=== PATIENT | female | born 1945 | race Caucasian/White ===

== ENCOUNTER 2017-10-22 11:24 | Inpatient (IN) | payer MEDICARE, BC ==
[2017-10-22] MEDS: IPRATROPIUM (NEB) 0.5 MG/2.5 ML AMP NEB ×2 (13:02→15:26)
[2017-10-22] MEDS: ALBUTEROL 0.083% (NEB) 2.5 MG/3 ML AMP NEB ×2 (13:02→15:26)
[2017-10-22 13:05] LABS: ADD MAN DIFF? NO
[2017-10-22 13:08] LABS: BASOPHILS % 0.4 % (0.0-2.0); EOSINOPHILS # 0.1 10^3/ul (0.0-0.5); EOSINOPHILS % 0.4 % (0.0-7.0); HEMATOCRIT 37.5 % (37.0-47.0); HEMOGLOBIN 12.3 g/dl (12.0-16.0); LYMPHOCYTES # 1.1 10^3/ul (0.8-2.9); LYMPHOCYTES % 9.9 % (15.0-51.0); MEAN CORPUSCULAR HEMOGLOBIN 33.9 pg (29.0-33.0); MEAN CORPUSCULAR HGB CONC 32.8 g/dl (32.0-37.0); MEAN CORPUSCULAR VOLUME 103.3 fl (82.0-101.0); MEAN PLATELET VOLUME 10.2 fl (7.4-10.4); MONOCYTE # 1.1 10^3/ul (0.3-0.9); MONOCYTES % 9.3 % (0.0-11.0); NEUTROPHIL # 9.1 10^3/ul (1.6-7.5); NEUTROPHILS % 79.7 % (39.0-77.0); PLATELET COUNT 241 10^3/UL (140-415); RED BLOOD COUNT 3.63 10^6/ul (4.20-5.40); RED CELL DISTRIBUTION WIDTH 16.2 % (11.5-14.5)
[2017-10-22 13:08] LABS: WHITE BLOOD COUNT 11.4 10^3/ul (4.8-10.8)
[2017-10-22 13:38] LABS: ANION GAP 14 (8-16); BLOOD UREA NITROGEN 18 mg/dl (7-20); CALCIUM 8.2 mg/dl (8.4-10.2); CARBON DIOXIDE 25 mmol/L (21-31); CHLORIDE 104 mmol/L (97-110); CREATININE 0.72 mg/dl (0.44-1.00); GLUCOSE 104 mg/dl (70-220); POTASSIUM 3.8 mmol/L (3.5-5.1); SODIUM 139 mmol/L (135-144)
[2017-10-22 13:52] LABS: TROPONIN-I < 0.012 ng/ml (0.00-0.12)
[2017-10-22] MEDS ORDERED: ONDANSETRON 4 MG INJ IV (17:00)
[2017-10-22] MEDS ORDERED: BISACODYL 10 MG SUPP PR (17:00)
[2017-10-22] MEDS ORDERED: DIPHENHYDRAMINE 50 MG INJ IV (17:00)
[2017-10-22] MEDS ORDERED: NACL 0.9% 3 ML SYG IV (17:00)
[2017-10-22] MEDS: METHYLPREDNISOLONE 125 MG INJ IV ×2 (17:44→21:34)
[2017-10-22] MEDS: morphine 2 MG INJ IV (17:44)
[2017-10-22 18:50] LABS: CREATINE KINASE 37 IU/L (23-200)
[2017-10-22 19:02] LABS: CK-MB 0.38 ng/ml (0.0-2.4); TROPONIN-I 0.014 ng/ml (0.00-0.12)
[2017-10-22] MEDS: ALBUTEROL/IPRATROPIUM (NEB) 3 ML AMP HHN (19:57)
[2017-10-22] MEDS: morphine 4 MG/ML VIAL IV (20:12)
[2017-10-22 21:41] LABS: INR 3.06; PROTIME 32.5 Sec (11.9-14.9); PT RATIO 2.5
[2017-10-23 01:43] LABS: CREATINE KINASE 32 IU/L (23-200)
[2017-10-23 01:54] LABS: CK INDEX 1.3; CK-MB 0.42 ng/ml (0.0-2.4)
[2017-10-23 02:02] LABS: TROPONIN-I < 0.012 ng/ml (0.00-0.12)
[2017-10-23] MEDS: ALBUTEROL/IPRATROPIUM (NEB) 3 ML AMP HHN ×4 (02:13→20:39)
[2017-10-23] MEDS: morphine 2 MG INJ IV ×2 (02:39→09:50)
[2017-10-23] MEDS ORDERED: VITAMIN A & D 5 GM OINT PACKET TOP (03:49)
[2017-10-23] MEDS: PANTOPRAZOLE 40 MG INJ IV (06:31)
[2017-10-23] MEDS: LEVOTHYROXINE 75 MCG TAB PO (07:00)
[2017-10-23] MEDS ORDERED: [UNRECOGNIZED DRUG - REMARK] XX (07:30)
[2017-10-23 08:27] LABS: ADD MAN DIFF? NO
[2017-10-23 08:32] LABS: WHITE BLOOD COUNT 5.9 10^3/ul (4.8-10.8)
[2017-10-23 08:32] LABS: BASOPHILS % 0.2 % (0.0-2.0); HEMATOCRIT 34.2 % (37.0-47.0); HEMOGLOBIN 11.4 g/dl (12.0-16.0); LYMPHOCYTES # 0.8 10^3/ul (0.8-2.9); LYMPHOCYTES % 14.2 % (15.0-51.0); MEAN CORPUSCULAR HEMOGLOBIN 33.8 pg (29.0-33.0); MEAN CORPUSCULAR HGB CONC 33.3 g/dl (32.0-37.0); MEAN CORPUSCULAR VOLUME 101.5 fl (82.0-101.0); MONOCYTE # 0.1 10^3/ul (0.3-0.9); MONOCYTES % 0.8 % (0.0-11.0); NEUTROPHILS % 84.3 % (39.0-77.0); PLATELET COUNT 222 10^3/UL (140-415); RED BLOOD COUNT 3.37 10^6/ul (4.20-5.40); RED CELL DISTRIBUTION WIDTH 16.2 % (11.5-14.5)
[2017-10-23] MEDS: POTASSIUM CHLORIDE (SR) 20 MEQ TAB PO (08:40)
[2017-10-23] MEDS: METHYLPREDNISOLONE 125 MG INJ IV ×3 (08:40→20:57)
[2017-10-23] MEDS: DOCUSATE SODIUM 100 MG CAP PO ×2 (08:40→20:57)
[2017-10-23] MEDS: FISH OIL 1,000 MG CAP PO ×4 (08:40→20:57)
[2017-10-23] MEDS: THIAMINE 100 MG TAB PO (08:41)
[2017-10-23] MEDS: ASPIRIN (EC) 81 MG TAB PO (08:41)
[2017-10-23] MEDS: LISINOPRIL 10 MG TAB PO (08:42)
[2017-10-23 08:53] LABS: ALANINE AMINOTRANSFERASE 24 IU/L (13-69); ALBUMIN 3.1 g/dl (3.3-4.9); ALBUMIN/GLOBULIN RATIO 1.03; ALKALINE PHOSPHATASE 65 IU/L (42-121); ANION GAP 12 (8-16); ASPARTATE AMINO TRANSFERASE 19 IU/L (15-46); BILIRUBIN,INDIRECT 0.1 mg/dl (0-1.1); BILIRUBIN,TOTAL 0.1 mg/dl (0.2-1.3); BLOOD UREA NITROGEN 21 mg/dl (7-20); CALCIUM 8.2 mg/dl (8.4-10.2); CARBON DIOXIDE 23 mmol/L (21-31); CHLORIDE 106 mmol/L (97-110); CHOLESTEROL 132 mg/dl (100-200); CREATININE 0.64 mg/dl (0.44-1.00); GLUCOSE 132 mg/dl (70-220); HDL CHOLESTEROL 43 mg/dl (33-92); LDL CHOLESTEROL,CALCULATED 79 mg/dl; MAGNESIUM 2.4 mg/dl (1.7-2.5); PHOSPHORUS 2.1 mg/dl (2.5-4.9); POTASSIUM 4.4 mmol/L (3.5-5.1); SODIUM 137 mmol/L (135-144); TOTAL PROTEIN 6.1 g/dl (6.1-8.1); TRIGLYCERIDES 48 mg/dl (0-149)
[2017-10-23] MEDS: RANITIDINE 150 MG TAB PO ×2 (09:00→16:41)
[2017-10-23] MEDS ORDERED: MEXILETINE HCL 250 MG PO (09:00)
[2017-10-23] MEDS: DOFETILIDE 250 MCG CAPSULE PO (09:00)
[2017-10-23 09:05] LABS: FREE THYROXINE INDEX (Calc) 5.19 ug/ml (0.65-3.89); T3 UPTAKE 39.9 % (23.5-40.5)
[2017-10-23 09:20] LABS: HEMOGLOBIN A1C 5.2 % (0-5.9)
[2017-10-23] MEDS: ONDANSETRON 4 MG INJ IV (09:51)
[2017-10-23] MEDS ORDERED: [UNRECOGNIZED DRUG - REMARK] XX (13:00)
[2017-10-23] MEDS: SODIUM PHOSPHATE 15 MMOL in SOD CHLORIDE 0.9% 250 ML IVPB ×2 (14:00→16:50)
[2017-10-23] MEDS: MEXILETINE PO ×4 (14:16→21:11)
[2017-10-23] MEDS: DOFETILIDE 250 MCG PO ×4 (14:18→21:11)
[2017-10-23 15:35] LABS: INR 3.16; PROTIME 33.4 Sec (11.9-14.9); PT RATIO 2.6
[2017-10-23] MEDS: WARFARIN 5 MG TAB PO (16:44)
[2017-10-23 18:49] LABS: ADD UMIC YES; UR ASCORBIC ACID 20 mg/dL (NEGATIVE); UR BACTERIA FEW /HPF (NONE SEEN); UR BILIRUBIN (Dip) NEGATIVE (NEGATIVE); UR BLOOD (Dip) NEGATIVE (NEGATIVE); UR CLARITY CLOUDY (CLEAR); UR COLOR YELLOW (YELLOW); UR GLUCOSE (Dip) NEGATIVE (NEGATIVE); UR KETONES (Dip) NEGATIVE (NEGATIVE); UR LEUKOCYTE ESTERASE (Dip) 2+ Leu/ul (NEGATIVE); UR NITRITE (Dip) NEGATIVE (NEGATIVE); UR RBC 1 /HPF (0-5); UR SPECIFIC GRAVITY (Dip) 1.017 (1.003-1.030); UR SQUAMOUS EPITHELIAL CELL FEW /HPF (FEW); UR TOTAL PROTEIN (Dip) 1+ mg/dl (NEGATIVE); UR UROBILINOGEN (Dip) NEGATIVE (NEGATIVE); UR WBC 7 /HPF (0-5)
[2017-10-23] MEDS: ACETYLCYSTEINE 20% 4 ML VIAL NEB ×2 (20:40→21:04)
[2017-10-23] MEDS: ATORVASTATIN 20 MG TAB PO (20:57)
[2017-10-24] MEDS: ALBUTEROL/IPRATROPIUM (NEB) 3 ML AMP HHN ×5 (01:30→20:58)
[2017-10-24] MEDS: ACETYLCYSTEINE 20% 4 ML VIAL NEB ×4 (01:30→20:58)
[2017-10-24 09:11] LABS: WHITE BLOOD COUNT 13.2 10^3/ul (4.8-10.8)
[2017-10-24 09:11] LABS: MEAN CORPUSCULAR HEMOGLOBIN 33.2 pg (29.0-33.0); MEAN CORPUSCULAR HGB CONC 32.4 g/dl (32.0-37.0); MEAN CORPUSCULAR VOLUME 102.5 fl (82.0-101.0); PLATELET COUNT 257 10^3/UL (140-415); RED BLOOD COUNT 3.61 10^6/ul (4.20-5.40); RED CELL DISTRIBUTION WIDTH 16.5 % (11.5-14.5)
[2017-10-24 09:27] LABS: INR 3.62; PROTIME 37.2 Sec (11.9-14.9); PT RATIO 2.9
[2017-10-24 09:28] LABS: PARTIAL THROMBOPLASTIN TIME 51.8 Sec (25.0-35.0)
[2017-10-24 09:33] LABS: ANION GAP 11 (8-16); BLOOD UREA NITROGEN 26 mg/dl (7-20); CALCIUM 8.4 mg/dl (8.4-10.2); CARBON DIOXIDE 24 mmol/L (21-31); CHLORIDE 108 mmol/L (97-110); CREATININE 0.65 mg/dl (0.44-1.00); GLUCOSE 131 mg/dl (70-220); MAGNESIUM 2.6 mg/dl (1.7-2.5); POTASSIUM 4.1 mmol/L (3.5-5.1); SODIUM 139 mmol/L (135-144)
[2017-10-24] MEDS: DOFETILIDE 250 MCG PO ×2 (09:35→20:31)
[2017-10-24] MEDS: METHYLPREDNISOLONE 125 MG INJ IV ×3 (09:35→20:33)
[2017-10-24] MEDS: MEXILETINE PO ×2 (09:35→20:30)
[2017-10-24 09:36] LABS: ADD MAN DIFF? YES; POSITIVE DIFF @See below
[2017-10-24] MEDS: LISINOPRIL 10 MG TAB PO (09:36)
[2017-10-24] MEDS: DOCUSATE SODIUM 100 MG CAP PO ×2 (09:36→20:31)
[2017-10-24] MEDS: THIAMINE 100 MG TAB PO (09:36)
[2017-10-24] MEDS: POTASSIUM CHLORIDE (SR) 20 MEQ TAB PO (09:36)
[2017-10-24] MEDS: RANITIDINE 150 MG TAB PO (09:36)
[2017-10-24] MEDS: ASPIRIN (EC) 81 MG TAB PO (09:36)
[2017-10-24] MEDS: FISH OIL 1,000 MG CAP PO ×4 (09:36→20:31)
[2017-10-24 11:10] LABS: ANISOCYTOSIS 1+ (0-0); BAND NEUTROPHILS #M 2.3 10^3/ul (0.0-0.6); BAND NEUTROPHILS % (M) 18 % (0-4); BURR CELLS 2+ (0-0); GIANT THROMBO% (M) 3 % (0-0); LYMPHOCYTES #M 0.6 10^3/ul (0.8-2.9); LYMPHOCYTES % (M) 5 % (15-51); MONOCYTE #M 0.6 10^3/ul (0.3-0.9); MONOCYTES % (M) 5 % (0-11); PLATELET ESTIMATE NORMAL; POIKILOCYTOSIS 2+ (0-0); POLYCHROMASIA 3+ (0-0); SEG NEUT #M 9.8 10^3/ul (1.6-7.5); SEGMENTED NEUTROPHILS (M) % 72 % (39-77); SMUDGE%M 9 % (0-0)
[2017-10-24] MEDS: LIDOCAINE 2% VISC 15 ML CUP PO (20:30)
[2017-10-24] MEDS: ATORVASTATIN 20 MG TAB PO (20:31)
[2017-10-25] MEDS: ACETYLCYSTEINE 20% 4 ML VIAL NEB ×4 (01:24→20:29)
[2017-10-25] MEDS: ALBUTEROL/IPRATROPIUM (NEB) 3 ML AMP HHN ×3 (08:27→20:29)
[2017-10-25] MEDS: METHYLPREDNISOLONE 125 MG INJ IV ×3 (09:19→20:39)
[2017-10-25] MEDS: LISINOPRIL 10 MG TAB PO (09:20)
[2017-10-25] MEDS: LIDOCAINE 2% VISC 15 ML CUP PO ×3 (09:20→20:40)
[2017-10-25] MEDS: POTASSIUM CHLORIDE (SR) 20 MEQ TAB PO (09:20)
[2017-10-25] MEDS: DOCUSATE SODIUM 100 MG CAP PO ×2 (09:20→20:41)
[2017-10-25] MEDS: RANITIDINE 150 MG TAB PO (09:20)
[2017-10-25] MEDS: ASPIRIN (EC) 81 MG TAB PO (09:21)
[2017-10-25] MEDS: DOFETILIDE 250 MCG PO ×2 (09:21→20:40)
[2017-10-25] MEDS: MEXILETINE PO ×2 (09:21→20:39)
[2017-10-25] MEDS: FISH OIL 1,000 MG CAP PO ×4 (09:22→20:41)
[2017-10-25 11:40] LABS: ADD MAN DIFF? NO
[2017-10-25 11:44] LABS: WHITE BLOOD COUNT 12.8 10^3/ul (4.8-10.8)
[2017-10-25 11:44] LABS: ABNORMAL IP MESSAGE 1; BASOPHILS % 0.2 % (0.0-2.0); HEMOGLOBIN 12.2 g/dl (12.0-16.0); LYMPHOCYTES # 0.6 10^3/ul (0.8-2.9); LYMPHOCYTES % 4.4 % (15.0-51.0); MEAN CORPUSCULAR HEMOGLOBIN 34.1 pg (29.0-33.0); MEAN CORPUSCULAR VOLUME 103.4 fl (82.0-101.0); MEAN PLATELET VOLUME 9.9 fl (7.4-10.4); MONOCYTES % 7.9 % (0.0-11.0); NEUTROPHIL # 11.1 10^3/ul (1.6-7.5); NEUTROPHILS % 86.9 % (39.0-77.0); PLATELET COUNT 249 10^3/UL (140-415); POSITIVE DIFF @See below; RED BLOOD COUNT 3.58 10^6/ul (4.20-5.40); RED CELL DISTRIBUTION WIDTH 16.2 % (11.5-14.5)
[2017-10-25 12:04] LABS: INR 4.42; PROTIME 43.7 Sec (11.9-14.9); PT RATIO 3.4
[2017-10-25 12:05] LABS: ANION GAP 16 (8-16); BLOOD UREA NITROGEN 29 mg/dl (7-20); CALCIUM 8.3 mg/dl (8.4-10.2); CARBON DIOXIDE 22 mmol/L (21-31); CHLORIDE 106 mmol/L (97-110); CREATININE 0.71 mg/dl (0.44-1.00); GLUCOSE 175 mg/dl (70-220); PARTIAL THROMBOPLASTIN TIME 57.5 Sec (25.0-35.0); POTASSIUM 4.2 mmol/L (3.5-5.1); SODIUM 140 mmol/L (135-144)
[2017-10-25] MEDS: THIAMINE 100 MG TAB PO (12:18)
[2017-10-25] MEDS: AZTREONAM 1 GM/NS (PMX) 50 ML IVPB ×2 (12:18→20:37)
[2017-10-25 12:22] LABS: FREE THYROXINE INDEX (Calc) 4.33 ug/ml (0.65-3.89); T3 UPTAKE 38.7 % (23.5-40.5); T4 (THYROXINE) 11.2 ug/dl (5.5-11.0)
[2017-10-25] MEDS: ATORVASTATIN 20 MG TAB PO (20:41)
[2017-10-26] MEDS: ALBUTEROL/IPRATROPIUM (NEB) 3 ML AMP HHN ×4 (01:53→19:17)
[2017-10-26] MEDS: ACETYLCYSTEINE 20% 4 ML VIAL NEB ×4 (01:54→19:18)
[2017-10-26] MEDS: LIDOCAINE 2% VISC 15 ML CUP PO ×3 (08:45→20:55)
[2017-10-26] MEDS: DOFETILIDE 250 MCG PO ×2 (08:45→20:49)
[2017-10-26] MEDS: MEXILETINE PO ×2 (08:45→20:49)
[2017-10-26] MEDS: METHYLPREDNISOLONE 125 MG INJ IV ×3 (08:46→20:49)
[2017-10-26] MEDS: POTASSIUM CHLORIDE (SR) 20 MEQ TAB PO (08:46)
[2017-10-26] MEDS: LISINOPRIL 10 MG TAB PO (08:46)
[2017-10-26] MEDS: ASPIRIN (EC) 81 MG TAB PO (08:46)
[2017-10-26] MEDS: DOCUSATE SODIUM 100 MG CAP PO ×2 (08:46→20:50)
[2017-10-26] MEDS: FISH OIL 1,000 MG CAP PO ×4 (08:46→20:50)
[2017-10-26] MEDS: RANITIDINE 150 MG TAB PO (08:46)
[2017-10-26] MEDS: THIAMINE 100 MG TAB PO (08:47)
[2017-10-26] MEDS: AZTREONAM 1 GM/NS (PMX) 50 ML IVPB ×2 (08:55→20:48)
[2017-10-26 09:33] LABS: WHITE BLOOD COUNT 10.9 10^3/ul (4.8-10.8)
[2017-10-26 09:33] LABS: HEMATOCRIT 34.7 % (37.0-47.0); HEMOGLOBIN 11.7 g/dl (12.0-16.0); MEAN CORPUSCULAR HEMOGLOBIN 34.1 pg (29.0-33.0); MEAN CORPUSCULAR HGB CONC 33.7 g/dl (32.0-37.0); MEAN CORPUSCULAR VOLUME 101.2 fl (82.0-101.0); MEAN PLATELET VOLUME 10.1 fl (7.4-10.4); PLATELET COUNT 243 10^3/UL (140-415); RED BLOOD COUNT 3.43 10^6/ul (4.20-5.40); RED CELL DISTRIBUTION WIDTH 16.3 % (11.5-14.5)
[2017-10-26 09:40] LABS: POSITIVE DIFF @See below
[2017-10-26 09:41] LABS: ADD MAN DIFF? YES
[2017-10-26 10:00] LABS: ANION GAP 12 (8-16); BLOOD UREA NITROGEN 22 mg/dl (7-20); CALCIUM 7.8 mg/dl (8.4-10.2); CARBON DIOXIDE 24 mmol/L (21-31); CHLORIDE 108 mmol/L (97-110); CREATININE 0.76 mg/dl (0.44-1.00); GLUCOSE 122 mg/dl (70-220); POTASSIUM 4.4 mmol/L (3.5-5.1); SODIUM 140 mmol/L (135-144)
[2017-10-26 10:05] LABS: INR 3.96; PT RATIO 3.1
[2017-10-26 10:07] LABS: FREE T4 (FREE THYROXINE) 1.96 ng/dl (0.78-2.44)
[2017-10-26 10:34] LABS: ANISOCYTOSIS 1+ (0-0); BAND NEUTROPHILS #M 1.8 10^3/ul (0.0-0.6); BAND NEUTROPHILS % (M) 17 % (0-4); BURR CELLS 2+ (0-0); GIANT THROMBO% (M) 1 % (0-0); LYMPHOCYTES #M 0.8 10^3/ul (0.8-2.9); LYMPHOCYTES % (M) 8 % (15-51); MONOCYTE #M 0.2 10^3/ul (0.3-0.9); MONOCYTES % (M) 2 % (0-11); PLATELET ESTIMATE NORMAL; POLYCHROMASIA 3+ (0-0); SEG NEUT #M 8.2 10^3/ul (1.6-7.5); SEGMENTED NEUTROPHILS (M) % 73 % (39-77); SMUDGE%M 7 % (0-0)
[2017-10-26] MEDS: MAGNESIUM HYDROXIDE 30ML CUP PO (17:49)
[2017-10-26] MEDS: ATORVASTATIN 20 MG TAB PO (20:49)
[2017-10-26] MEDS: POLYETHYLENE GLYCOL 17 GM PACKET PO (20:55)
[2017-10-26] MEDS: DOXYCYCLINE 100 MG TAB PO (21:57)
[2017-10-27] MEDS ORDERED: CLINDAMYCIN 300 MG CAP PO
[2017-10-27] MEDS: ACETYLCYSTEINE 20% 4 ML VIAL NEB ×4 (02:07→20:00)
[2017-10-27] MEDS: ALBUTEROL/IPRATROPIUM (NEB) 3 ML AMP HHN ×4 (02:07→20:00)
[2017-10-27 08:27] LABS: ADD MAN DIFF? NO
[2017-10-27 08:36] LABS: WHITE BLOOD COUNT 12.1 10^3/ul (4.8-10.8)
[2017-10-27 08:36] LABS: BASOPHILS % 0.3 % (0.0-2.0); HEMATOCRIT 34.3 % (37.0-47.0); HEMOGLOBIN 11.3 g/dl (12.0-16.0); LYMPHOCYTES % 8.2 % (15.0-51.0); MEAN CORPUSCULAR HEMOGLOBIN 33.4 pg (29.0-33.0); MEAN CORPUSCULAR HGB CONC 32.9 g/dl (32.0-37.0); MEAN CORPUSCULAR VOLUME 101.5 fl (82.0-101.0); MEAN PLATELET VOLUME 10.5 fl (7.4-10.4); MONOCYTES % 8.1 % (0.0-11.0); NEUTROPHIL # 9.5 10^3/ul (1.6-7.5); NUCLEATED RED BLOOD CELLS% 0.2 /100WBC (0.0-0.0); PLATELET COUNT 254 10^3/UL (140-415); RED BLOOD COUNT 3.38 10^6/ul (4.20-5.40); RED CELL DISTRIBUTION WIDTH 16.1 % (11.5-14.5)
[2017-10-27 08:59] LABS: INR 2.68; PROTIME 29.3 Sec (11.9-14.9); PT RATIO 2.3
[2017-10-27] MEDS: LIDOCAINE 2% VISC 15 ML CUP PO ×3 (09:05→20:37)
[2017-10-27] MEDS: FISH OIL 1,000 MG CAP PO ×4 (09:06→20:37)
[2017-10-27] MEDS: DOFETILIDE 250 MCG PO ×2 (09:06→20:38)
[2017-10-27] MEDS: POLYETHYLENE GLYCOL 17 GM PACKET PO ×2 (09:06→20:38)
[2017-10-27] MEDS: MEXILETINE PO ×2 (09:06→20:38)
[2017-10-27] MEDS: POTASSIUM CHLORIDE (SR) 20 MEQ TAB PO (09:07)
[2017-10-27] MEDS: LISINOPRIL 10 MG TAB PO (09:07)
[2017-10-27] MEDS: FUROSEMIDE 20 MG INJ IV (09:07)
[2017-10-27] MEDS: THIAMINE 100 MG TAB PO (09:08)
[2017-10-27] MEDS: DOCUSATE SODIUM 100 MG CAP PO ×2 (09:08→20:37)
[2017-10-27] MEDS: METHYLPREDNISOLONE 125 MG INJ IV (09:08)
[2017-10-27] MEDS: RANITIDINE 150 MG TAB PO (09:08)
[2017-10-27] MEDS: ASPIRIN (EC) 81 MG TAB PO (09:08)
[2017-10-27] MEDS: DOXYCYCLINE 100 MG TAB PO ×2 (09:08→20:37)
[2017-10-27] MEDS: AZTREONAM 1 GM/NS (PMX) 50 ML IVPB ×2 (09:10→20:31)
[2017-10-27 09:11] LABS: B-TYPE NATRIURETIC PEPTIDE 7070 PG/ML (0-125)
[2017-10-27 09:18] LABS: FREE T4 (FREE THYROXINE) 1.83 ng/dl (0.78-2.44)
[2017-10-27 09:21] LABS: ANION GAP 11 (8-16); BLOOD UREA NITROGEN 24 mg/dl (7-20); CALCIUM 7.7 mg/dl (8.4-10.2); CARBON DIOXIDE 25 mmol/L (21-31); CHLORIDE 106 mmol/L (97-110); CREATININE 0.75 mg/dl (0.44-1.00); GLUCOSE 111 mg/dl (70-220); POTASSIUM 4.6 mmol/L (3.5-5.1); SODIUM 137 mmol/L (135-144)
[2017-10-27 09:31] LABS: MAGNESIUM 2.7 mg/dl (1.7-2.5)
[2017-10-27 09:31] LABS: PHOSPHORUS 1.5 mg/dl (2.5-4.9)
[2017-10-27 09:34] LABS: THYROID STIMULATING HORMONE < 0.015 MIU/L (0.465-4.680)
[2017-10-27 14:30] LABS: FOLATE 5.6 ng/ml (2.8-20.0)
[2017-10-27] MEDS: WARFARIN 2 MG TAB PO (17:37)
[2017-10-27] MEDS: BISACODYL (EC) 5 MG TAB PO (17:38)
[2017-10-27] MEDS: ATORVASTATIN 20 MG TAB PO (20:37)
[2017-10-27] MEDS: METHYLPREDNISOLONE 40 MG INJ IV (22:00)
[2017-10-28] MEDS: ALBUTEROL/IPRATROPIUM (NEB) 3 ML AMP HHN ×4 (03:15→19:47)
[2017-10-28] MEDS: ACETYLCYSTEINE 20% 4 ML VIAL NEB ×4 (03:15→19:47)
[2017-10-28] MEDS: LEVOTHYROXINE 50 MCG TAB PO (05:47)
[2017-10-28] MEDS: METHYLPREDNISOLONE 40 MG INJ IV ×3 (05:47→21:15)
[2017-10-28 08:24] LABS: ABNORMAL IP MESSAGE 1; HEMATOCRIT 33.4 % (37.0-47.0); HEMOGLOBIN 11.4 g/dl (12.0-16.0); MEAN CORPUSCULAR HEMOGLOBIN 34.3 pg (29.0-33.0); MEAN CORPUSCULAR HGB CONC 34.1 g/dl (32.0-37.0); MEAN CORPUSCULAR VOLUME 100.6 fl (82.0-101.0); MEAN PLATELET VOLUME 9.8 fl (7.4-10.4); PLATELET COUNT 223 10^3/UL (140-415); RED BLOOD COUNT 3.32 10^6/ul (4.20-5.40); RED CELL DISTRIBUTION WIDTH 15.9 % (11.5-14.5)
[2017-10-28 08:24] LABS: WHITE BLOOD COUNT 12.1 10^3/ul (4.8-10.8)
[2017-10-28 08:36] LABS: ADD MAN DIFF? YES; POSITIVE DIFF @See below
[2017-10-28 08:57] LABS: INR 2.57; PROTIME 28.3 Sec (11.9-14.9); PT RATIO 2.2
[2017-10-28 08:58] LABS: PHOSPHORUS 1.7 mg/dl (2.5-4.9)
[2017-10-28 08:58] LABS: MAGNESIUM 2.4 mg/dl (1.7-2.5)
[2017-10-28] MEDS: DOCUSATE SODIUM 100 MG CAP PO ×2 (09:00→21:00)
[2017-10-28] MEDS: POLYETHYLENE GLYCOL 17 GM PACKET PO ×2 (09:00→21:00)
[2017-10-28 09:02] LABS: ANION GAP 8 (8-16); BLOOD UREA NITROGEN 17 mg/dl (7-20); CALCIUM 7.5 mg/dl (8.4-10.2); CARBON DIOXIDE 28 mmol/L (21-31); CHLORIDE 104 mmol/L (97-110); CREATININE 0.73 mg/dl (0.44-1.00); GLUCOSE 104 mg/dl (70-220); POTASSIUM 4.4 mmol/L (3.5-5.1); SODIUM 136 mmol/L (135-144)
[2017-10-28 10:34] LABS: ANISOCYTOSIS 1+ (0-0); BAND NEUTROPHILS #M 0.3 10^3/ul (0.0-0.6); BAND NEUTROPHILS % (M) 3 % (0-4); BURR CELLS 2+ (0-0); GIANT THROMBO% (M) 1 % (0-0); LYMPHOCYTES % (M) 9 % (15-51); METAMYELOCYTES #M 0.1 10^3/ul (0.0-0.0); METAMYELOCYTES %M 1 % (0-0); MONOCYTE #M 0.4 10^3/ul (0.3-0.9); MONOCYTES % (M) 4 % (0-11); MYELOCYTES #M 0.2 10^3/ul (0.0-0.0); MYELOCYTES % (M) 2 % (0-0); PLATELET ESTIMATE NORMAL; POIKILOCYTOSIS 2+ (0-0); POLYCHROMASIA 3+ (0-0); SEG NEUT #M 9.8 10^3/ul (1.6-7.5); SEGMENTED NEUTROPHILS (M) % 81 % (39-77); SMUDGE%M 7 % (0-0)
[2017-10-28] MEDS: DOXYCYCLINE 100 MG TAB PO ×2 (10:36→21:04)
[2017-10-28] MEDS: RANITIDINE 150 MG TAB PO (10:36)
[2017-10-28] MEDS: FISH OIL 1,000 MG CAP PO ×4 (10:36→21:04)
[2017-10-28] MEDS: THIAMINE 100 MG TAB PO (10:37)
[2017-10-28] MEDS: POTASSIUM CHLORIDE (SR) 20 MEQ TAB PO (10:37)
[2017-10-28] MEDS: ASPIRIN (EC) 81 MG TAB PO (10:37)
[2017-10-28] MEDS: LISINOPRIL 10 MG TAB PO (10:38)
[2017-10-28] MEDS: DOFETILIDE 250 MCG PO ×2 (10:39→21:05)
[2017-10-28] MEDS: MEXILETINE PO ×2 (10:40→21:05)
[2017-10-28] MEDS: LIDOCAINE 2% VISC 15 ML CUP PO ×3 (10:52→21:00)
[2017-10-28] MEDS: FUROSEMIDE 20 MG INJ IV (10:55)
[2017-10-28] MEDS: AZTREONAM 1 GM/NS (PMX) 50 ML IVPB ×2 (10:56→21:15)
[2017-10-28] MEDS: SODIUM PHOSPHATE 15 MMOL in SOD CHLORIDE 0.9% 250 ML IVPB (14:36)
[2017-10-28] MEDS: WARFARIN 2 MG TAB PO (18:21)
[2017-10-28] MEDS: ATORVASTATIN 20 MG TAB PO (21:04)
[2017-10-29] MEDS: ACETYLCYSTEINE 20% 4 ML VIAL NEB ×4 (01:19→20:14)
[2017-10-29] MEDS: ALBUTEROL/IPRATROPIUM (NEB) 3 ML AMP HHN ×4 (01:19→20:14)
[2017-10-29] MEDS: METHYLPREDNISOLONE 40 MG INJ IV ×3 (06:10→21:25)
[2017-10-29] MEDS: LEVOTHYROXINE 50 MCG TAB PO (06:10)
[2017-10-29] MEDS: FISH OIL 1,000 MG CAP PO ×4 (08:53→21:24)
[2017-10-29] MEDS: DOCUSATE SODIUM 100 MG CAP PO ×2 (08:53→21:24)
[2017-10-29] MEDS: BISACODYL (EC) 5 MG TAB PO (08:53)
[2017-10-29] MEDS: LISINOPRIL 10 MG TAB PO (08:54)
[2017-10-29] MEDS: ASPIRIN (EC) 81 MG TAB PO (08:54)
[2017-10-29] MEDS: FUROSEMIDE 20 MG INJ IV (08:55)
[2017-10-29] MEDS: MEXILETINE PO ×2 (08:55→21:24)
[2017-10-29] MEDS: DOFETILIDE 250 MCG PO ×2 (08:56→21:23)
[2017-10-29] MEDS: LIDOCAINE 2% VISC 15 ML CUP PO ×3 (08:59→21:00)
[2017-10-29] MEDS: DOXYCYCLINE 100 MG TAB PO ×3 (09:00→21:25)
[2017-10-29] MEDS: POTASSIUM CHLORIDE (SR) 20 MEQ TAB PO (09:10)
[2017-10-29] MEDS: RANITIDINE 150 MG TAB PO (09:10)
[2017-10-29] MEDS: THIAMINE 100 MG TAB PO (09:10)
[2017-10-29] MEDS: POLYETHYLENE GLYCOL 17 GM PACKET PO ×2 (09:10→21:23)
[2017-10-29 09:43] LABS: WHITE BLOOD COUNT 13.6 10^3/ul (4.8-10.8)
[2017-10-29 09:43] LABS: ABNORMAL IP MESSAGE 1; HEMATOCRIT 36.8 % (37.0-47.0); HEMOGLOBIN 12.5 g/dl (12.0-16.0); MEAN PLATELET VOLUME 10.4 fl (7.4-10.4); NUCLEATED RED BLOOD CELLS% 0.1 /100WBC (0.0-0.0); PLATELET COUNT 265 10^3/UL (140-415); RED BLOOD COUNT 3.68 10^6/ul (4.20-5.40); RED CELL DISTRIBUTION WIDTH 15.7 % (11.5-14.5)
[2017-10-29 09:54] LABS: ADD MAN DIFF? YES; POSITIVE DIFF @See below
[2017-10-29 09:59] LABS: ANION GAP 10 (8-16); BLOOD UREA NITROGEN 20 mg/dl (7-20); CALCIUM 7.4 mg/dl (8.4-10.2); CARBON DIOXIDE 27 mmol/L (21-31); CHLORIDE 105 mmol/L (97-110); GLUCOSE 102 mg/dl (70-220); POTASSIUM 3.9 mmol/L (3.5-5.1); SODIUM 138 mmol/L (135-144)
[2017-10-29 10:07] LABS: PHOSPHORUS 2.2 mg/dl (2.5-4.9)
[2017-10-29 10:07] LABS: MAGNESIUM 2.3 mg/dl (1.7-2.5)
[2017-10-29 10:10] LABS: INR 1.87; PROTIME 21.9 Sec (11.9-14.9); PT RATIO 1.7
[2017-10-29] MEDS: AZTREONAM 1 GM/NS (PMX) 50 ML IVPB ×2 (10:33→21:22)
[2017-10-29 10:44] LABS: ANISOCYTOSIS 1+ (0-0); BAND NEUTROPHILS #M 0.6 10^3/ul (0.0-0.6); BAND NEUTROPHILS % (M) 5 % (0-4); ERYTHROBLAST% (NRBC) (M) 2 % (0-0); LYMPHOCYTES #M 0.6 10^3/ul (0.8-2.9); LYMPHOCYTES % (M) 5 % (15-51); METAMYELOCYTES #M 0.1 10^3/ul (0.0-0.0); METAMYELOCYTES %M 1 % (0-0); MONOCYTE #M 0.5 10^3/ul (0.3-0.9); MONOCYTES % (M) 4 % (0-11); PLATELET ESTIMATE NORMAL; POIKILOCYTOSIS 3+ (0-0); POLYCHROMASIA 3+ (0-0); SEG NEUT #M 11.6 10^3/ul (1.6-7.5); SEGMENTED NEUTROPHILS (M) % 85 % (39-77); SMUDGE%M 4 % (0-0)
[2017-10-29] MEDS: WARFARIN 5 MG TAB PO (17:18)
[2017-10-29] MEDS: ATORVASTATIN 20 MG TAB PO (21:25)
[2017-10-30] MEDS: ALBUTEROL/IPRATROPIUM (NEB) 3 ML AMP HHN ×4 (01:06→19:37)
[2017-10-30] MEDS: ACETYLCYSTEINE 20% 4 ML VIAL NEB ×4 (01:07→19:50)
[2017-10-30] MEDS: LEVOTHYROXINE 50 MCG TAB PO (06:25)
[2017-10-30] MEDS: METHYLPREDNISOLONE 40 MG INJ IV ×3 (06:25→21:43)
[2017-10-30] MEDS: MAGNESIUM HYDROXIDE 30ML CUP PO (08:43)
[2017-10-30] MEDS: FUROSEMIDE 20 MG INJ IV (08:43)
[2017-10-30] MEDS: LIDOCAINE 2% VISC 15 ML CUP PO ×3 (08:44→21:43)
[2017-10-30] MEDS: MEXILETINE PO ×2 (08:44→21:41)
[2017-10-30] MEDS: DOFETILIDE 250 MCG PO ×2 (08:44→21:41)
[2017-10-30] MEDS: DOCUSATE SODIUM 100 MG CAP PO ×2 (08:44→21:41)
[2017-10-30] MEDS: LISINOPRIL 10 MG TAB PO (08:45)
[2017-10-30] MEDS: ASPIRIN (EC) 81 MG TAB PO (08:45)
[2017-10-30] MEDS: FISH OIL 1,000 MG CAP PO ×4 (08:45→21:42)
[2017-10-30] MEDS: THIAMINE 100 MG TAB PO (08:45)
[2017-10-30] MEDS: BISACODYL (EC) 5 MG TAB PO (08:45)
[2017-10-30] MEDS: POTASSIUM CHLORIDE (SR) 20 MEQ TAB PO (08:46)
[2017-10-30] MEDS: POLYETHYLENE GLYCOL 17 GM PACKET PO ×2 (08:46→21:42)
[2017-10-30] MEDS: DOXYCYCLINE 100 MG TAB PO ×3 (09:00→21:00)
[2017-10-30 09:08] LABS: WHITE BLOOD COUNT 15.9 10^3/ul (4.8-10.8)
[2017-10-30 09:08] LABS: ABNORMAL IP MESSAGE 1; HEMOGLOBIN 12.2 g/dl (12.0-16.0); MEAN CORPUSCULAR HEMOGLOBIN 33.8 pg (29.0-33.0); MEAN CORPUSCULAR HGB CONC 33.9 g/dl (32.0-37.0); MEAN CORPUSCULAR VOLUME 99.7 fl (82.0-101.0); MEAN PLATELET VOLUME 10.2 fl (7.4-10.4); NUCLEATED RED BLOOD CELLS% 0.2 /100WBC (0.0-0.0); PLATELET COUNT 238 10^3/UL (140-415); RED BLOOD COUNT 3.61 10^6/ul (4.20-5.40); RED CELL DISTRIBUTION WIDTH 15.7 % (11.5-14.5)
[2017-10-30 09:26] LABS: ADD MAN DIFF? YES; POSITIVE DIFF @See below
[2017-10-30] MEDS: RANITIDINE 150 MG TAB PO (09:27)
[2017-10-30 09:31] LABS: INR 2.17; PROTIME 24.7 Sec (11.9-14.9); PT RATIO 1.9
[2017-10-30 09:33] LABS: ANION GAP 9 (8-16); BLOOD UREA NITROGEN 27 mg/dl (7-20); CALCIUM 7.9 mg/dl (8.4-10.2); CARBON DIOXIDE 26 mmol/L (21-31); CHLORIDE 106 mmol/L (97-110); CREATININE 0.62 mg/dl (0.44-1.00); GLUCOSE 104 mg/dl (70-220); POTASSIUM 4.5 mmol/L (3.5-5.1); SODIUM 136 mmol/L (135-144)
[2017-10-30 09:50] LABS: MAGNESIUM 2.3 mg/dl (1.7-2.5)
[2017-10-30 10:48] LABS: ANISOCYTOSIS 1+ (0-0); BAND NEUTROPHILS #M 0.1 10^3/ul (0.0-0.6); BAND NEUTROPHILS % (M) 1 % (0-4); BURR CELLS 2+ (0-0); LYMPHOCYTES % (M) 13 % (15-51); METAMYELOCYTES #M 0.1 10^3/ul (0.0-0.0); METAMYELOCYTES %M 1 % (0-0); MONOCYTE #M 0.1 10^3/ul (0.3-0.9); MONOCYTES % (M) 1 % (0-11); MYELOCYTES #M 0.6 10^3/ul (0.0-0.0); MYELOCYTES % (M) 4 % (0-0); OVALOCYTES 1+ (0-0); PLATELET ESTIMATE NORMAL; POIKILOCYTOSIS 3+ (0-0); POLYCHROMASIA 3+ (0-0); SEG NEUT #M 12.7 10^3/ul (1.6-7.5); SEGMENTED NEUTROPHILS (M) % 80 % (39-77); SMUDGE%M 4 % (0-0)
[2017-10-30] MEDS: AZTREONAM 1 GM/NS (PMX) 50 ML IVPB ×2 (12:11→21:41)
[2017-10-30] MEDS: SODIUM PHOSPHATE 15 MMOL in SOD CHLORIDE 0.9% 250 ML IVPB (14:39)
[2017-10-30] MEDS: WARFARIN 5 MG TAB PO (17:01)
[2017-10-30] MEDS: ATORVASTATIN 20 MG TAB PO (21:42)
[2017-10-31] MEDS: ALBUTEROL/IPRATROPIUM (NEB) 3 ML AMP HHN ×4 (01:24→19:08)
[2017-10-31] MEDS: ACETYLCYSTEINE 20% 4 ML VIAL NEB ×4 (01:39→19:09)
[2017-10-31] MEDS: LEVOTHYROXINE 50 MCG TAB PO (06:26)
[2017-10-31] MEDS: METHYLPREDNISOLONE 40 MG INJ IV ×2 (06:26→20:17)
[2017-10-31 07:50] LABS: WHITE BLOOD COUNT 12.7 10^3/ul (4.8-10.8)
[2017-10-31 07:50] LABS: ABNORMAL IP MESSAGE 1; HEMATOCRIT 34.1 % (37.0-47.0); HEMOGLOBIN 11.7 g/dl (12.0-16.0); MEAN CORPUSCULAR HEMOGLOBIN 33.8 pg (29.0-33.0); MEAN CORPUSCULAR HGB CONC 34.3 g/dl (32.0-37.0); MEAN CORPUSCULAR VOLUME 98.6 fl (82.0-101.0); MEAN PLATELET VOLUME 10.2 fl (7.4-10.4); PLATELET COUNT 249 10^3/UL (140-415); RED BLOOD COUNT 3.46 10^6/ul (4.20-5.40); RED CELL DISTRIBUTION WIDTH 15.8 % (11.5-14.5)
[2017-10-31 07:54] LABS: ADD MAN DIFF? YES; POSITIVE DIFF @See below
[2017-10-31 08:12] LABS: ANION GAP 9 (8-16); CARBON DIOXIDE 25 mmol/L (21-31); CHLORIDE 105 mmol/L (97-110); POTASSIUM 4.1 mmol/L (3.5-5.1); SODIUM 135 mmol/L (135-144)
[2017-10-31 08:24] LABS: PHOSPHORUS 2.6 mg/dl (2.5-4.9)
[2017-10-31 08:24] LABS: MAGNESIUM 2.2 mg/dl (1.7-2.5)
[2017-10-31 08:54] LABS: INR 3.45; PROTIME 35.8 Sec (11.9-14.9); PT RATIO 2.8
[2017-10-31] MEDS: DOCUSATE SODIUM 100 MG CAP PO ×2 (09:00→20:18)
[2017-10-31] MEDS: POLYETHYLENE GLYCOL 17 GM PACKET PO ×2 (09:00→20:20)
[2017-10-31 09:04] LABS: BLOOD UREA NITROGEN 28 mg/dl (7-20); CALCIUM 7.4 mg/dl (8.4-10.2); CREATININE 0.63 mg/dl (0.44-1.00); GLUCOSE 102 mg/dl (70-220)
[2017-10-31] MEDS: DOXYCYCLINE 100 MG TAB PO ×2 (09:37→20:17)
[2017-10-31] MEDS: FUROSEMIDE 20 MG INJ IV (09:37)
[2017-10-31] MEDS: RANITIDINE 150 MG TAB PO (09:37)
[2017-10-31] MEDS: POTASSIUM CHLORIDE (SR) 20 MEQ TAB PO (09:38)
[2017-10-31] MEDS: LIDOCAINE 2% VISC 15 ML CUP PO ×4 (09:38→20:20)
[2017-10-31] MEDS: ASPIRIN (EC) 81 MG TAB PO (09:38)
[2017-10-31] MEDS: LISINOPRIL 10 MG TAB PO (09:38)
[2017-10-31] MEDS: FISH OIL 1,000 MG CAP PO ×4 (09:38→20:18)
[2017-10-31] MEDS: AZTREONAM 1 GM/NS (PMX) 50 ML IVPB ×2 (09:39→20:18)
[2017-10-31] MEDS: THIAMINE 100 MG TAB PO (09:39)
[2017-10-31] MEDS: MEXILETINE PO ×2 (09:40→20:19)
[2017-10-31] MEDS: DOFETILIDE 250 MCG PO ×2 (09:40→20:18)
[2017-10-31 11:07] LABS: ANISOCYTOSIS 1+ (0-0); BAND NEUTROPHILS #M 0.2 10^3/ul (0.0-0.6); BAND NEUTROPHILS % (M) 2 % (0-4); BURR CELLS 2+ (0-0); GIANT THROMBO% (M) 2 % (0-0); LYMPHOCYTES #M 0.7 10^3/ul (0.8-2.9); LYMPHOCYTES % (M) 6 % (15-51); MONOCYTE #M 0.5 10^3/ul (0.3-0.9); MONOCYTES % (M) 4 % (0-11); OVALOCYTES 2+ (0-0); PLATELET ESTIMATE NORMAL; POIKILOCYTOSIS 3+ (0-0); POLYCHROMASIA 1+ (0-0); SEG NEUT #M 11.2 10^3/ul (1.6-7.5); SEGMENTED NEUTROPHILS (M) % 88 % (39-77); SMUDGE%M 9 % (0-0)
[2017-10-31] MEDS: ATORVASTATIN 20 MG TAB PO (20:18)
[2017-11-01] MEDS: ACETYLCYSTEINE 20% 4 ML VIAL NEB ×4 (01:24→20:53)
[2017-11-01] MEDS: ALBUTEROL/IPRATROPIUM (NEB) 3 ML AMP HHN ×4 (01:24→20:43)
[2017-11-01] MEDS: LEVOTHYROXINE 50 MCG TAB PO (06:08)
[2017-11-01 07:51] LABS: ADD MAN DIFF? NO
[2017-11-01 07:56] LABS: BASOPHILS % 0.2 % (0.0-2.0); HEMATOCRIT 35.6 % (37.0-47.0); HEMOGLOBIN 11.9 g/dl (12.0-16.0); LYMPHOCYTES # 1.2 10^3/ul (0.8-2.9); LYMPHOCYTES % 9.1 % (15.0-51.0); MEAN CORPUSCULAR HEMOGLOBIN 33.7 pg (29.0-33.0); MEAN CORPUSCULAR HGB CONC 33.4 g/dl (32.0-37.0); MEAN CORPUSCULAR VOLUME 100.8 fl (82.0-101.0); MEAN PLATELET VOLUME 10.2 fl (7.4-10.4); MONOCYTE # 0.7 10^3/ul (0.3-0.9); MONOCYTES % 5.1 % (0.0-11.0); NEUTROPHIL # 10.5 10^3/ul (1.6-7.5); NEUTROPHILS % 81.7 % (39.0-77.0); PLATELET COUNT 230 10^3/UL (140-415); RED BLOOD COUNT 3.53 10^6/ul (4.20-5.40); RED CELL DISTRIBUTION WIDTH 15.8 % (11.5-14.5)
[2017-11-01 07:56] LABS: WHITE BLOOD COUNT 12.8 10^3/ul (4.8-10.8)
[2017-11-01 08:10] LABS: PHOSPHORUS 2.8 mg/dl (2.5-4.9)
[2017-11-01 08:10] LABS: INR 3.21; MAGNESIUM 2.1 mg/dl (1.7-2.5); PROTIME 33.8 Sec (11.9-14.9); PT RATIO 2.6
[2017-11-01 08:15] LABS: ANION GAP 10 (8-16); BLOOD UREA NITROGEN 31 mg/dl (7-20); CARBON DIOXIDE 28 mmol/L (21-31); CHLORIDE 106 mmol/L (97-110); CREATININE 0.61 mg/dl (0.44-1.00); GLUCOSE 90 mg/dl (70-220); POTASSIUM 4.1 mmol/L (3.5-5.1); SODIUM 140 mmol/L (135-144)
[2017-11-01] MEDS: POLYETHYLENE GLYCOL 17 GM PACKET PO ×3 (09:00→20:39)
[2017-11-01] MEDS: LIDOCAINE 2% VISC 15 ML CUP PO ×3 (09:00→20:40)
[2017-11-01] MEDS: MEXILETINE PO ×2 (09:13→20:39)
[2017-11-01] MEDS: METHYLPREDNISOLONE 40 MG INJ IV ×2 (09:14→20:39)
[2017-11-01] MEDS: LISINOPRIL 10 MG TAB PO (09:14)
[2017-11-01] MEDS: DOFETILIDE 250 MCG PO ×2 (09:14→20:39)
[2017-11-01] MEDS: ASPIRIN (EC) 81 MG TAB PO (09:14)
[2017-11-01] MEDS: DOCUSATE SODIUM 100 MG CAP PO ×2 (09:14→20:38)
[2017-11-01] MEDS: RANITIDINE 150 MG TAB PO (09:14)
[2017-11-01] MEDS: FUROSEMIDE 20 MG INJ IV (09:15)
[2017-11-01] MEDS: POTASSIUM CHLORIDE (SR) 20 MEQ TAB PO (09:15)
[2017-11-01] MEDS: FISH OIL 1,000 MG CAP PO ×4 (09:15→20:39)
[2017-11-01] MEDS: THIAMINE 100 MG TAB PO (09:16)
[2017-11-01] MEDS: AZTREONAM 1 GM/NS (PMX) 50 ML IVPB ×2 (09:25→20:39)
[2017-11-01] MEDS: DOXYCYCLINE 100 MG TAB PO ×2 (13:54→20:38)
[2017-11-01] MEDS: ATORVASTATIN 20 MG TAB PO (20:38)
[2017-11-02] MEDS: ALBUTEROL/IPRATROPIUM (NEB) 3 ML AMP HHN ×4 (01:10→20:00)
[2017-11-02] MEDS: ACETYLCYSTEINE 20% 4 ML VIAL NEB ×2 (01:20→08:16)
[2017-11-02] MEDS: LEVOTHYROXINE 50 MCG TAB PO (06:27)
[2017-11-02 07:50] LABS: ADD MAN DIFF? NO
[2017-11-02 08:01] LABS: WHITE BLOOD COUNT 14.2 10^3/ul (4.8-10.8)
[2017-11-02 08:01] LABS: BASOPHILS % 0.3 % (0.0-2.0); HEMATOCRIT 35.2 % (37.0-47.0); HEMOGLOBIN 11.8 g/dl (12.0-16.0); LYMPHOCYTES # 1.2 10^3/ul (0.8-2.9); LYMPHOCYTES % 8.2 % (15.0-51.0); MEAN CORPUSCULAR HEMOGLOBIN 33.6 pg (29.0-33.0); MEAN CORPUSCULAR HGB CONC 33.5 g/dl (32.0-37.0); MEAN CORPUSCULAR VOLUME 100.3 fl (82.0-101.0); MEAN PLATELET VOLUME 10.5 fl (7.4-10.4); MONOCYTE # 0.7 10^3/ul (0.3-0.9); MONOCYTES % 4.6 % (0.0-11.0); NEUTROPHIL # 11.9 10^3/ul (1.6-7.5); NEUTROPHILS % 83.5 % (39.0-77.0); PLATELET COUNT 237 10^3/UL (140-415); RED BLOOD COUNT 3.51 10^6/ul (4.20-5.40); RED CELL DISTRIBUTION WIDTH 15.5 % (11.5-14.5)
[2017-11-02 08:20] LABS: INR 2.32; PROTIME 26.1 Sec (11.9-14.9)
[2017-11-02 08:31] LABS: ANION GAP 8 (8-16); BLOOD UREA NITROGEN 33 mg/dl (7-20); CARBON DIOXIDE 26 mmol/L (21-31); CHLORIDE 107 mmol/L (97-110); CREATININE 0.62 mg/dl (0.44-1.00); GLUCOSE 100 mg/dl (70-220); POTASSIUM 4.1 mmol/L (3.5-5.1); SODIUM 137 mmol/L (135-144)
[2017-11-02] MEDS: DOXYCYCLINE 100 MG TAB PO ×2 (09:38→20:38)
[2017-11-02] MEDS: METHYLPREDNISOLONE 40 MG INJ IV ×4 (09:38→23:25)
[2017-11-02] MEDS: LIDOCAINE 2% VISC 15 ML CUP PO ×3 (09:38→20:41)
[2017-11-02] MEDS: DOCUSATE SODIUM 100 MG CAP PO ×2 (09:39→20:42)
[2017-11-02] MEDS: POTASSIUM CHLORIDE (SR) 20 MEQ TAB PO (09:39)
[2017-11-02] MEDS: FISH OIL 1,000 MG CAP PO ×4 (09:39→20:38)
[2017-11-02] MEDS: DOFETILIDE 250 MCG PO ×2 (09:40→20:39)
[2017-11-02] MEDS: MEXILETINE PO ×2 (09:40→20:39)
[2017-11-02] MEDS: ASPIRIN (EC) 81 MG TAB PO (09:40)
[2017-11-02] MEDS: POLYETHYLENE GLYCOL 17 GM PACKET PO ×2 (09:41→20:42)
[2017-11-02] MEDS: THIAMINE 100 MG TAB PO (09:41)
[2017-11-02] MEDS: RANITIDINE 150 MG TAB PO (09:43)
[2017-11-02] MEDS: LISINOPRIL 10 MG TAB PO (09:43)
[2017-11-02] MEDS: FUROSEMIDE 20 MG INJ IV (09:44)
[2017-11-02] MEDS: AZTREONAM 1 GM/NS (PMX) 50 ML IVPB ×2 (11:17→20:36)
[2017-11-02] MEDS: ATORVASTATIN 20 MG TAB PO (20:38)
[2017-11-03] MEDS: ALBUTEROL/IPRATROPIUM (NEB) 3 ML AMP HHN ×4 (01:22→19:48)
[2017-11-03] MEDS: METHYLPREDNISOLONE 40 MG INJ IV ×3 (05:48→17:40)
[2017-11-03] MEDS: GUAIFENESIN 20 MG/ML 5ML CUP PO (05:53)
[2017-11-03] MEDS: LEVOTHYROXINE 50 MCG TAB PO (06:02)
[2017-11-03 08:31] LABS: ADD MAN DIFF? NO
[2017-11-03] MEDS: LIDOCAINE 2% VISC 15 ML CUP PO ×3 (08:32→21:00)
[2017-11-03] MEDS: POLYETHYLENE GLYCOL 17 GM PACKET PO ×2 (08:32→21:00)
[2017-11-03] MEDS: DOXYCYCLINE 100 MG TAB PO ×2 (08:33→20:56)
[2017-11-03] MEDS: DOCUSATE SODIUM 100 MG CAP PO ×2 (08:33→20:56)
[2017-11-03] MEDS: FUROSEMIDE 20 MG INJ IV (08:33)
[2017-11-03] MEDS: RANITIDINE 150 MG TAB PO (08:33)
[2017-11-03] MEDS: FISH OIL 1,000 MG CAP PO ×4 (08:33→20:56)
[2017-11-03] MEDS: THIAMINE 100 MG TAB PO (08:33)
[2017-11-03] MEDS: LISINOPRIL 10 MG TAB PO (08:34)
[2017-11-03] MEDS: MEXILETINE PO ×2 (08:34→20:57)
[2017-11-03] MEDS: AZTREONAM 1 GM/NS (PMX) 50 ML IVPB ×2 (08:34→20:55)
[2017-11-03] MEDS: DOFETILIDE 250 MCG PO ×2 (08:34→20:56)
[2017-11-03] MEDS: ASPIRIN (EC) 81 MG TAB PO (08:34)
[2017-11-03] MEDS: POTASSIUM CHLORIDE (SR) 20 MEQ TAB PO (08:34)
[2017-11-03 08:37] LABS: BASOPHILS % 0.2 % (0.0-2.0); HEMATOCRIT 35.1 % (37.0-47.0); HEMOGLOBIN 11.9 g/dl (12.0-16.0); LYMPHOCYTES # 0.9 10^3/ul (0.8-2.9); LYMPHOCYTES % 5.1 % (15.0-51.0); MEAN CORPUSCULAR HEMOGLOBIN 33.4 pg (29.0-33.0); MEAN CORPUSCULAR HGB CONC 33.9 g/dl (32.0-37.0); MEAN CORPUSCULAR VOLUME 98.6 fl (82.0-101.0); MEAN PLATELET VOLUME 10.1 fl (7.4-10.4); MONOCYTE # 0.5 10^3/ul (0.3-0.9); MONOCYTES % 2.9 % (0.0-11.0); NEUTROPHIL # 15.3 10^3/ul (1.6-7.5); NEUTROPHILS % 89.9 % (39.0-77.0); PLATELET COUNT 241 10^3/UL (140-415); RED BLOOD COUNT 3.56 10^6/ul (4.20-5.40); RED CELL DISTRIBUTION WIDTH 15.1 % (11.5-14.5)
[2017-11-03 08:50] LABS: MAGNESIUM 1.9 mg/dl (1.7-2.5)
[2017-11-03 08:57] LABS: ANION GAP 11 (8-16); BLOOD UREA NITROGEN 35 mg/dl (7-20); CALCIUM 8.5 mg/dl (8.4-10.2); CARBON DIOXIDE 26 mmol/L (21-31); CHLORIDE 104 mmol/L (97-110); CREATININE 0.59 mg/dl (0.44-1.00); GLUCOSE 110 mg/dl (70-220); POTASSIUM 4.4 mmol/L (3.5-5.1); SODIUM 137 mmol/L (135-144)
[2017-11-03] MEDS: WARFARIN 5 MG TAB PO (17:40)
[2017-11-03] MEDS: ATORVASTATIN 20 MG TAB PO (20:56)
[2017-11-04] MEDS: METHYLPREDNISOLONE 40 MG INJ IV ×2 (00:51→06:04)
[2017-11-04] MEDS: ALBUTEROL/IPRATROPIUM (NEB) 3 ML AMP HHN ×4 (01:32→20:18)
[2017-11-04 05:41] LABS: ADD MAN DIFF? NO
[2017-11-04] MEDS: LEVOTHYROXINE 50 MCG TAB PO (06:04)
[2017-11-04 06:05] LABS: BASOPHILS % 0.2 % (0.0-2.0); HEMATOCRIT 35.4 % (37.0-47.0); HEMOGLOBIN 12.2 g/dl (12.0-16.0); LYMPHOCYTES # 0.8 10^3/ul (0.8-2.9); LYMPHOCYTES % 4.3 % (15.0-51.0); MEAN CORPUSCULAR HGB CONC 34.5 g/dl (32.0-37.0); MEAN CORPUSCULAR VOLUME 98.6 fl (82.0-101.0); MEAN PLATELET VOLUME 10.2 fl (7.4-10.4); MONOCYTE # 0.5 10^3/ul (0.3-0.9); MONOCYTES % 2.8 % (0.0-11.0); NEUTROPHIL # 17.5 10^3/ul (1.6-7.5); NEUTROPHILS % 91.1 % (39.0-77.0); PLATELET COUNT 230 10^3/UL (140-415); RED BLOOD COUNT 3.59 10^6/ul (4.20-5.40); RED CELL DISTRIBUTION WIDTH 14.9 % (11.5-14.5)
[2017-11-04 06:05] LABS: WHITE BLOOD COUNT 19.2 10^3/ul (4.8-10.8)
[2017-11-04 06:43] LABS: INR 1.21; PROTIME 15.5 Sec (11.9-14.9); PT RATIO 1.2
[2017-11-04 06:45] LABS: ANION GAP 10 (8-16); BLOOD UREA NITROGEN 42 mg/dl (7-20); CALCIUM 8.8 mg/dl (8.4-10.2); CARBON DIOXIDE 26 mmol/L (21-31); CHLORIDE 103 mmol/L (97-110); CREATININE 0.67 mg/dl (0.44-1.00); GLUCOSE 135 mg/dl (70-220); POTASSIUM 4.2 mmol/L (3.5-5.1); SODIUM 135 mmol/L (135-144)
[2017-11-04] MEDS: POLYETHYLENE GLYCOL 17 GM PACKET PO ×2 (09:00→21:00)
[2017-11-04] MEDS: LIDOCAINE 2% VISC 15 ML CUP PO ×4 (09:00→21:00)
[2017-11-04] MEDS: POTASSIUM CHLORIDE (SR) 20 MEQ TAB PO (09:18)
[2017-11-04] MEDS: THIAMINE 100 MG TAB PO (09:20)
[2017-11-04] MEDS: FUROSEMIDE 20 MG INJ IV (09:20)
[2017-11-04] MEDS: DOXYCYCLINE 100 MG TAB PO (09:20)
[2017-11-04] MEDS: MEXILETINE PO ×2 (09:20→21:00)
[2017-11-04] MEDS: RANITIDINE 150 MG TAB PO (09:20)
[2017-11-04] MEDS: DOCUSATE SODIUM 100 MG CAP PO ×2 (09:20→22:32)
[2017-11-04] MEDS: FISH OIL 1,000 MG CAP PO ×4 (09:20→22:32)
[2017-11-04] MEDS: DOFETILIDE 250 MCG PO ×2 (09:20→21:00)
[2017-11-04] MEDS: LISINOPRIL 10 MG TAB PO (09:20)
[2017-11-04] MEDS: ASPIRIN (EC) 81 MG TAB PO (09:20)
[2017-11-04] MEDS: AZTREONAM 1 GM/NS (PMX) 50 ML IVPB (09:21)
[2017-11-04] MEDS: WARFARIN 5 MG TAB PO (17:30)
[2017-11-04] MEDS: ATORVASTATIN 20 MG TAB PO (22:32)
[2017-11-05] MEDS: ALBUTEROL/IPRATROPIUM (NEB) 3 ML AMP HHN ×4 (01:13→20:52)
[2017-11-05 06:07] LABS: ADD MAN DIFF? NO
[2017-11-05] MEDS: LEVOTHYROXINE 50 MCG TAB PO ×2 (06:14→08:35)
[2017-11-05 06:40] LABS: INR 1.65; PROTIME 19.9 Sec (11.9-14.9); PT RATIO 1.6
[2017-11-05 06:42] LABS: ANION GAP 7 (8-16); BASOPHILS % 0.1 % (0.0-2.0); BLOOD UREA NITROGEN 38 mg/dl (7-20); CALCIUM 8.4 mg/dl (8.4-10.2); CARBON DIOXIDE 28 mmol/L (21-31); CHLORIDE 105 mmol/L (97-110); CREATININE 0.65 mg/dl (0.44-1.00); EOSINOPHILS # 0.1 10^3/ul (0.0-0.5); EOSINOPHILS % 0.9 % (0.0-7.0); GLUCOSE 80 mg/dl (70-220); HEMATOCRIT 35.4 % (37.0-47.0); HEMOGLOBIN 12.2 g/dl (12.0-16.0); LYMPHOCYTES # 1.2 10^3/ul (0.8-2.9); LYMPHOCYTES % 10.1 % (15.0-51.0); MEAN CORPUSCULAR HEMOGLOBIN 34.3 pg (29.0-33.0); MEAN CORPUSCULAR HGB CONC 34.5 g/dl (32.0-37.0); MEAN CORPUSCULAR VOLUME 99.4 fl (82.0-101.0); MEAN PLATELET VOLUME 10.4 fl (7.4-10.4); MONOCYTE # 0.9 10^3/ul (0.3-0.9); MONOCYTES % 7.5 % (0.0-11.0); NEUTROPHIL # 9.3 10^3/ul (1.6-7.5); NEUTROPHILS % 79.6 % (39.0-77.0); PLATELET COUNT 211 10^3/UL (140-415); POTASSIUM 3.9 mmol/L (3.5-5.1); RED BLOOD COUNT 3.56 10^6/ul (4.20-5.40); SODIUM 136 mmol/L (135-144)
[2017-11-05 06:42] LABS: WHITE BLOOD COUNT 11.6 10^3/ul (4.8-10.8)
[2017-11-05] MEDS: POTASSIUM CHLORIDE (SR) 20 MEQ TAB PO (08:35)
[2017-11-05] MEDS: THIAMINE 100 MG TAB PO (08:35)
[2017-11-05] MEDS: ASPIRIN (EC) 81 MG TAB PO (08:35)
[2017-11-05] MEDS: FISH OIL 1,000 MG CAP PO ×4 (08:35→21:15)
[2017-11-05] MEDS: DOCUSATE SODIUM 100 MG CAP PO ×2 (08:35→21:00)
[2017-11-05] MEDS: LIDOCAINE 2% VISC 15 ML CUP PO ×3 (08:36→21:00)
[2017-11-05] MEDS: LISINOPRIL 10 MG TAB PO (08:36)
[2017-11-05] MEDS: FUROSEMIDE 20 MG INJ IV (08:36)
[2017-11-05] MEDS: POLYETHYLENE GLYCOL 17 GM PACKET PO ×2 (08:36→21:00)
[2017-11-05] MEDS: MEXILETINE PO ×2 (09:00→22:39)
[2017-11-05] MEDS: DOFETILIDE 250 MCG PO ×2 (09:00→22:39)
[2017-11-05] MEDS: RANITIDINE 150 MG TAB PO (10:17)
[2017-11-05] MEDS: GUAIFENESIN LA 600 MG TABSR PO (15:23)
[2017-11-05] MEDS: GUAIFENESIN 20 MG/ML 5ML CUP PO ×2 (15:25→20:49)
[2017-11-05] MEDS: [UNRECOGNIZED DRUG - REMARK] XX (17:30)
[2017-11-05] MEDS: WARFARIN 5 MG TAB PO (18:28)
[2017-11-05] MEDS ORDERED: MEXILETINE 200 MG CAP PO ×2 (21:00)
[2017-11-05] MEDS ORDERED: DOFETILIDE 250 MCG CAPSULE PO (21:00)
[2017-11-05] MEDS: ATORVASTATIN 20 MG TAB PO (21:15)
[2017-11-06] MEDS: GUAIFENESIN LA 600 MG TABSR PO ×3 (02:43→22:36)
[2017-11-06] MEDS: ALBUTEROL/IPRATROPIUM (NEB) 3 ML AMP HHN ×4 (02:47→19:51)
[2017-11-06] MEDS: METHYLPREDNISOLONE 125 MG INJ IV ×3 (03:37→17:12)
[2017-11-06] MEDS: FUROSEMIDE 20 MG INJ IV ×2 (03:38→10:03)
[2017-11-06 04:46] LABS: AADO2 Arterial 161.8 mmHg (7.0-24.0); Allen Test ACCEPTAB; Arterial Base Excess 3.1 mmol/L (-3.0-3); Arterial Blood Gas Oxygen Sat 88.9 mmHG (95.0-100.0); Arterial COHb 0 % (0.0-3.0); Arterial Fraction of Oxyhgb 88.7 % (93.0-99.0); Arterial HCO3 26.2 mmol/L (22.0-26.0); Arterial MetHb 0.2 % (0.0-1.5); Arterial Total Hemglobin 14.5 g/dl (12.0-18.0); Arterial pCO2 35.6 mmhg (35-45); MODE NASAL CANNULA; Site Right Radial
[2017-11-06 05:52] LABS: ADD MAN DIFF? NO
[2017-11-06 05:57] LABS: WHITE BLOOD COUNT 13.2 10^3/ul (4.8-10.8)
[2017-11-06 05:57] LABS: ABNORMAL IP MESSAGE 1; BASOPHILS % 0.2 % (0.0-2.0); EOSINOPHILS # 0.1 10^3/ul (0.0-0.5); EOSINOPHILS % 0.7 % (0.0-7.0); HEMATOCRIT 41.2 % (37.0-47.0); HEMOGLOBIN 14.3 g/dl (12.0-16.0); LYMPHOCYTES # 0.6 10^3/ul (0.8-2.9); LYMPHOCYTES % 4.3 % (15.0-51.0); MEAN CORPUSCULAR HEMOGLOBIN 34.4 pg (29.0-33.0); MEAN CORPUSCULAR HGB CONC 34.7 g/dl (32.0-37.0); MEAN PLATELET VOLUME 10.3 fl (7.4-10.4); MONOCYTE # 0.6 10^3/ul (0.3-0.9); MONOCYTES % 4.3 % (0.0-11.0); NEUTROPHIL # 11.8 10^3/ul (1.6-7.5); NEUTROPHILS % 89.2 % (39.0-77.0); PLATELET COUNT 160 10^3/UL (140-415); RED BLOOD COUNT 4.16 10^6/ul (4.20-5.40); RED CELL DISTRIBUTION WIDTH 15.1 % (11.5-14.5)
[2017-11-06 06:51] LABS: POSITIVE DIFF @See below
[2017-11-06 07:34] LABS: PROTIME 22.2 Sec (11.9-14.9); PT RATIO 1.7
[2017-11-06 07:44] LABS: ANION GAP 12 (8-16); BLOOD UREA NITROGEN 39 mg/dl (7-20); CALCIUM 8.5 mg/dl (8.4-10.2); CARBON DIOXIDE 25 mmol/L (21-31); CHLORIDE 104 mmol/L (97-110); CREATININE 0.71 mg/dl (0.44-1.00); GLUCOSE 88 mg/dl (70-220); POTASSIUM 4.6 mmol/L (3.5-5.1); SODIUM 136 mmol/L (135-144)
[2017-11-06] MEDS: DOCUSATE SODIUM 100 MG CAP PO ×2 (09:00→21:00)
[2017-11-06] MEDS: THIAMINE 100 MG TAB PO (09:00)
[2017-11-06] MEDS: POLYETHYLENE GLYCOL 17 GM PACKET PO ×2 (09:00→22:44)
[2017-11-06] MEDS: LIDOCAINE 2% VISC 15 ML CUP PO ×3 (09:00→22:44)
[2017-11-06] MEDS: LISINOPRIL 10 MG TAB PO (10:01)
[2017-11-06] MEDS: RANITIDINE 150 MG TAB PO (10:01)
[2017-11-06] MEDS: FISH OIL 1,000 MG CAP PO ×4 (10:02→22:36)
[2017-11-06] MEDS: POTASSIUM CHLORIDE (SR) 20 MEQ TAB PO (10:02)
[2017-11-06] MEDS: ASPIRIN (EC) 81 MG TAB PO (10:02)
[2017-11-06] MEDS: MEXILETINE PO ×2 (10:04→22:39)
[2017-11-06] MEDS: DOFETILIDE 250 MCG PO ×2 (10:04→22:37)
[2017-11-06] MEDS: AZITHROMYCIN 250 MG TAB PO (13:11)
[2017-11-06] MEDS: ENOXAPARIN 100 MG/ML SYG SC (14:50)
[2017-11-06] MEDS: WARFARIN 5 MG TAB PO (17:12)
[2017-11-06] MEDS: SOD CHLORIDE 0.9% 250 ML IV (17:13)
[2017-11-06] MEDS: GUAIFENESIN/DM (SR) TAB PO (22:36)
[2017-11-06] MEDS: LACTOBACILLUS RHAMNOSUS CAP PO (22:36)
[2017-11-06] MEDS: ATORVASTATIN 20 MG TAB PO (22:36)
[2017-11-07] MEDS: METHYLPREDNISOLONE 125 MG INJ IV ×5 (00:02→23:47)
[2017-11-07] MEDS: ALBUTEROL/IPRATROPIUM (NEB) 3 ML AMP HHN ×4 (02:49→19:36)
[2017-11-07] MEDS: LEVOTHYROXINE 50 MCG TAB PO ×2 (05:58→08:16)
[2017-11-07 06:24] LABS: WHITE BLOOD COUNT 11.7 10^3/ul (4.8-10.8)
[2017-11-07 06:24] LABS: ADD MAN DIFF? NO; BASOPHILS % 0.1 % (0.0-2.0); HEMATOCRIT 36.6 % (37.0-47.0); HEMOGLOBIN 12.6 g/dl (12.0-16.0); LYMPHOCYTES # 0.7 10^3/ul (0.8-2.9); LYMPHOCYTES % 5.9 % (15.0-51.0); MEAN CORPUSCULAR HEMOGLOBIN 34.2 pg (29.0-33.0); MEAN CORPUSCULAR HGB CONC 34.4 g/dl (32.0-37.0); MEAN CORPUSCULAR VOLUME 99.5 fl (82.0-101.0); MEAN PLATELET VOLUME 10.8 fl (7.4-10.4); MONOCYTE # 0.4 10^3/ul (0.3-0.9); NEUTROPHIL # 10.6 10^3/ul (1.6-7.5); NEUTROPHILS % 90.1 % (39.0-77.0); PLATELET COUNT 174 10^3/UL (140-415); RED BLOOD COUNT 3.68 10^6/ul (4.20-5.40); RED CELL DISTRIBUTION WIDTH 14.7 % (11.5-14.5)
[2017-11-07 06:52] LABS: INR 2.37; PROTIME 26.5 Sec (11.9-14.9); PT RATIO 2.1
[2017-11-07 06:59] LABS: PHOSPHORUS 3.2 mg/dl (2.5-4.9)
[2017-11-07 06:59] LABS: MAGNESIUM 1.9 mg/dl (1.7-2.5)
[2017-11-07 07:34] LABS: ALANINE AMINOTRANSFERASE 37 IU/L (13-69); ALBUMIN 2.6 g/dl (3.3-4.9); ALBUMIN/GLOBULIN RATIO 0.92; ALKALINE PHOSPHATASE 69 IU/L (42-121); ANION GAP 9 (8-16); ASPARTATE AMINO TRANSFERASE 25 IU/L (15-46); BILIRUBIN,INDIRECT 0.1 mg/dl (0-1.1); BILIRUBIN,TOTAL 0.1 mg/dl (0.2-1.3); BLOOD UREA NITROGEN 45 mg/dl (7-20); CARBON DIOXIDE 28 mmol/L (21-31); CHLORIDE 103 mmol/L (97-110); CREATININE 0.77 mg/dl (0.44-1.00); GLUCOSE 149 mg/dl (70-220); POTASSIUM 3.6 mmol/L (3.5-5.1); SODIUM 136 mmol/L (135-144); TOTAL PROTEIN 5.4 g/dl (6.1-8.1)
[2017-11-07 08:38] LABS: TROPONIN-I 0.034 ng/ml (0.00-0.12)
[2017-11-07] MEDS: THIAMINE 100 MG TAB PO ×2 (09:00→09:30)
[2017-11-07] MEDS ORDERED: FUROSEMIDE 20 MG TAB PO (09:00)
[2017-11-07] MEDS: POLYETHYLENE GLYCOL 17 GM PACKET PO ×3 (09:00→20:20)
[2017-11-07] MEDS: LIDOCAINE 2% VISC 15 ML CUP PO ×4 (09:00→21:39)
[2017-11-07] MEDS: DOCUSATE SODIUM 100 MG CAP PO ×2 (09:00→20:15)
[2017-11-07] MEDS: FISH OIL 1,000 MG CAP PO ×4 (09:28→20:16)
[2017-11-07] MEDS: AZITHROMYCIN 250 MG TAB PO (09:28)
[2017-11-07] MEDS: LACTOBACILLUS RHAMNOSUS CAP PO ×2 (09:28→20:16)
[2017-11-07] MEDS: GUAIFENESIN/DM (SR) TAB PO ×2 (09:28→20:16)
[2017-11-07] MEDS: ASPIRIN (EC) 81 MG TAB PO (09:29)
[2017-11-07] MEDS: LISINOPRIL 10 MG TAB PO (09:29)
[2017-11-07] MEDS: RANITIDINE 150 MG TAB PO (09:29)
[2017-11-07] MEDS: POTASSIUM CHLORIDE (SR) 20 MEQ TAB PO (09:30)
[2017-11-07] MEDS: DOFETILIDE 250 MCG PO ×2 (09:33→20:17)
[2017-11-07] MEDS: MEXILETINE PO ×2 (09:33→20:17)
[2017-11-07] MEDS: ENOXAPARIN 100 MG/ML SYG SC (13:20)
[2017-11-07] MEDS: WARFARIN 5 MG TAB PO (18:01)
[2017-11-07] MEDS: ACETYLCYSTEINE 20% 4 ML VIAL NEB (19:39)
[2017-11-07] MEDS: ATORVASTATIN 20 MG TAB PO (20:16)
[2017-11-08] MEDS: ALBUTEROL/IPRATROPIUM (NEB) 3 ML AMP HHN ×4 (01:44→19:33)
[2017-11-08] MEDS: ACETYLCYSTEINE 20% 4 ML VIAL NEB ×4 (01:45→19:33)
[2017-11-08 05:36] LABS: AADO2 Arterial 314.9 mmHg (7.0-24.0); Arterial Blood Gas Oxygen Sat 95.6 mmHG (95.0-100.0); Arterial COHb 0.3 % (0.0-3.0); Arterial Fraction of Oxyhgb 95.2 % (93.0-99.0); Arterial HCO3 28.4 mmol/L (22.0-26.0); Arterial MetHb 0.1 % (0.0-1.5); Arterial Total Hemglobin 13.4 g/dl (12.0-18.0); Arterial pCO2 38.1 mmhg (35-45); MODE MASK - SIMPLE; Site Right Brachial
[2017-11-08] MEDS: METHYLPREDNISOLONE 125 MG INJ IV ×3 (06:12→17:12)
[2017-11-08] MEDS: LEVOTHYROXINE 50 MCG TAB PO (06:13)
[2017-11-08 06:42] LABS: ADD MAN DIFF? NO
[2017-11-08 06:51] LABS: BASOPHILS % 0.1 % (0.0-2.0); HEMATOCRIT 36.7 % (37.0-47.0); HEMOGLOBIN 12.9 g/dl (12.0-16.0); LYMPHOCYTES # 0.8 10^3/ul (0.8-2.9); LYMPHOCYTES % 6.3 % (15.0-51.0); MEAN CORPUSCULAR HEMOGLOBIN 34.6 pg (29.0-33.0); MEAN CORPUSCULAR HGB CONC 35.1 g/dl (32.0-37.0); MEAN CORPUSCULAR VOLUME 98.4 fl (82.0-101.0); MONOCYTE # 0.4 10^3/ul (0.3-0.9); MONOCYTES % 3.2 % (0.0-11.0); NEUTROPHIL # 10.9 10^3/ul (1.6-7.5); NEUTROPHILS % 89.7 % (39.0-77.0); PLATELET COUNT 194 10^3/UL (140-415); RED BLOOD COUNT 3.73 10^6/ul (4.20-5.40); RED CELL DISTRIBUTION WIDTH 14.4 % (11.5-14.5)
[2017-11-08 06:51] LABS: WHITE BLOOD COUNT 12.1 10^3/ul (4.8-10.8)
[2017-11-08 07:04] LABS: PROTIME 33.7 Sec (11.9-14.9); PT RATIO 2.6
[2017-11-08 07:16] LABS: ANION GAP 7 (8-16); BLOOD UREA NITROGEN 43 mg/dl (7-20); CALCIUM 8.4 mg/dl (8.4-10.2); CARBON DIOXIDE 27 mmol/L (21-31); CHLORIDE 101 mmol/L (97-110); CREATININE 0.66 mg/dl (0.44-1.00); GLUCOSE 133 mg/dl (70-220); SODIUM 131 mmol/L (135-144)
[2017-11-08 07:55] LABS: PHOSPHORUS 2.7 mg/dl (2.5-4.9)
[2017-11-08 07:55] LABS: MAGNESIUM 2.1 mg/dl (1.7-2.5)
[2017-11-08] MEDS: FISH OIL 1,000 MG CAP PO ×4 (08:02→20:16)
[2017-11-08] MEDS: MEXILETINE PO ×2 (08:02→20:16)
[2017-11-08] MEDS: DOCUSATE SODIUM 100 MG CAP PO ×2 (08:02→20:16)
[2017-11-08] MEDS: POLYETHYLENE GLYCOL 17 GM PACKET PO ×2 (08:02→20:16)
[2017-11-08] MEDS: DOFETILIDE 250 MCG PO ×2 (08:02→20:16)
[2017-11-08] MEDS: GUAIFENESIN/DM (SR) TAB PO ×2 (08:03→20:10)
[2017-11-08] MEDS: THIAMINE 100 MG TAB PO (08:03)
[2017-11-08] MEDS: AZITHROMYCIN 250 MG TAB PO (08:03)
[2017-11-08] MEDS: POTASSIUM CHLORIDE (SR) 20 MEQ TAB PO (08:03)
[2017-11-08] MEDS: ASPIRIN (EC) 81 MG TAB PO (08:04)
[2017-11-08] MEDS: LACTOBACILLUS RHAMNOSUS CAP PO ×2 (08:04→20:16)
[2017-11-08] MEDS: LISINOPRIL 10 MG TAB PO (08:04)
[2017-11-08] MEDS: GUAIFENESIN 20 MG/ML 5ML CUP PO (08:04)
[2017-11-08] MEDS: RANITIDINE 150 MG TAB PO (08:04)
[2017-11-08] MEDS: LIDOCAINE 2% VISC 15 ML CUP PO ×3 (08:04→20:15)
[2017-11-08] MEDS: ATORVASTATIN 20 MG TAB PO (20:10)
[2017-11-09] MEDS: ALBUTEROL/IPRATROPIUM (NEB) 3 ML AMP HHN ×4 (01:17→19:19)
[2017-11-09] MEDS: ACETYLCYSTEINE 20% 4 ML VIAL NEB ×4 (01:18→19:19)
[2017-11-09] MEDS: METHYLPREDNISOLONE 125 MG INJ IV ×4 (01:35→17:36)
[2017-11-09] MEDS: LEVOTHYROXINE 50 MCG TAB PO (06:26)
[2017-11-09 06:29] LABS: ADD MAN DIFF? NO
[2017-11-09 06:35] LABS: ABNORMAL IP MESSAGE 1; BASOPHILS % 0.1 % (0.0-2.0); HEMATOCRIT 37.1 % (37.0-47.0); HEMOGLOBIN 12.9 g/dl (12.0-16.0); LYMPHOCYTES # 0.5 10^3/ul (0.8-2.9); LYMPHOCYTES % 3.3 % (15.0-51.0); MEAN CORPUSCULAR HEMOGLOBIN 34.1 pg (29.0-33.0); MEAN CORPUSCULAR HGB CONC 34.8 g/dl (32.0-37.0); MEAN CORPUSCULAR VOLUME 98.1 fl (82.0-101.0); MEAN PLATELET VOLUME 10.5 fl (7.4-10.4); MONOCYTE # 0.5 10^3/ul (0.3-0.9); MONOCYTES % 2.9 % (0.0-11.0); NEUTROPHIL # 14.4 10^3/ul (1.6-7.5); NEUTROPHILS % 93.1 % (39.0-77.0); PLATELET COUNT 181 10^3/UL (140-415); RED BLOOD COUNT 3.78 10^6/ul (4.20-5.40); RED CELL DISTRIBUTION WIDTH 14.5 % (11.5-14.5)
[2017-11-09 06:35] LABS: WHITE BLOOD COUNT 15.4 10^3/ul (4.8-10.8)
[2017-11-09 06:54] LABS: INR 3.26; PT RATIO 2.7
[2017-11-09 06:55] LABS: POSITIVE DIFF @See below
[2017-11-09 06:57] LABS: ALANINE AMINOTRANSFERASE 40 IU/L (13-69); ALBUMIN 2.8 g/dl (3.3-4.9); ALBUMIN/GLOBULIN RATIO 1.03; ALKALINE PHOSPHATASE 73 IU/L (42-121); ANION GAP 12 (8-16); ASPARTATE AMINO TRANSFERASE 28 IU/L (15-46); BILIRUBIN,INDIRECT 0.3 mg/dl (0-1.1); BILIRUBIN,TOTAL 0.3 mg/dl (0.2-1.3); BLOOD UREA NITROGEN 38 mg/dl (7-20); CARBON DIOXIDE 27 mmol/L (21-31); CHLORIDE 100 mmol/L (97-110); CREATININE 0.67 mg/dl (0.44-1.00); GLUCOSE 137 mg/dl (70-220); MAGNESIUM 2.2 mg/dl (1.7-2.5); PHOSPHORUS 2.6 mg/dl (2.5-4.9); POTASSIUM 4.5 mmol/L (3.5-5.1); SODIUM 134 mmol/L (135-144); TOTAL PROTEIN 5.5 g/dl (6.1-8.1)
[2017-11-09 07:44] LABS: PROTIME 34.2 Sec (11.9-14.9)
[2017-11-09] MEDS: LACTOBACILLUS RHAMNOSUS CAP PO ×2 (08:09→20:35)
[2017-11-09] MEDS: LIDOCAINE 2% VISC 15 ML CUP PO ×4 (08:09→20:42)
[2017-11-09] MEDS: DOCUSATE SODIUM 100 MG CAP PO ×2 (08:09→20:41)
[2017-11-09] MEDS: GUAIFENESIN/DM (SR) TAB PO ×2 (08:09→20:35)
[2017-11-09] MEDS: ASPIRIN (EC) 81 MG TAB PO (08:09)
[2017-11-09] MEDS: AZITHROMYCIN 250 MG TAB PO (08:09)
[2017-11-09] MEDS: FUROSEMIDE 20 MG TAB PO (08:10)
[2017-11-09] MEDS: LISINOPRIL 10 MG TAB PO (08:10)
[2017-11-09] MEDS: RANITIDINE 150 MG TAB PO (08:10)
[2017-11-09] MEDS: THIAMINE 100 MG TAB PO (08:10)
[2017-11-09] MEDS: FISH OIL 1,000 MG CAP PO ×4 (08:11→20:42)
[2017-11-09] MEDS: POLYETHYLENE GLYCOL 17 GM PACKET PO ×3 (08:11→20:42)
[2017-11-09] MEDS: POTASSIUM CHLORIDE (SR) 20 MEQ TAB PO (08:11)
[2017-11-09] MEDS: DOFETILIDE 250 MCG PO ×2 (08:12→20:36)
[2017-11-09] MEDS: MEXILETINE PO ×2 (08:12→20:36)
[2017-11-09] MEDS: ATORVASTATIN 20 MG TAB PO (20:35)
[2017-11-10] MEDS: METHYLPREDNISOLONE 125 MG INJ IV ×4 (00:36→17:57)
[2017-11-10] MEDS: ALBUTEROL/IPRATROPIUM (NEB) 3 ML AMP HHN ×4 (01:57→19:25)
[2017-11-10] MEDS: ACETYLCYSTEINE 20% 4 ML VIAL NEB ×4 (01:57→19:25)
[2017-11-10 06:41] LABS: ADD MAN DIFF? NO
[2017-11-10 06:50] LABS: ABNORMAL IP MESSAGE 1; HEMATOCRIT 37.9 % (37.0-47.0); HEMOGLOBIN 12.9 g/dl (12.0-16.0); LYMPHOCYTES # 0.5 10^3/ul (0.8-2.9); LYMPHOCYTES % 3.8 % (15.0-51.0); MEAN CORPUSCULAR HEMOGLOBIN 33.9 pg (29.0-33.0); MEAN CORPUSCULAR VOLUME 99.7 fl (82.0-101.0); MEAN PLATELET VOLUME 10.6 fl (7.4-10.4); MONOCYTE # 0.3 10^3/ul (0.3-0.9); MONOCYTES % 2.4 % (0.0-11.0); NEUTROPHIL # 12.2 10^3/ul (1.6-7.5); NEUTROPHILS % 93.3 % (39.0-77.0); PLATELET COUNT 164 10^3/UL (140-415); RED CELL DISTRIBUTION WIDTH 14.3 % (11.5-14.5)
[2017-11-10 06:50] LABS: WHITE BLOOD COUNT 13.1 10^3/ul (4.8-10.8)
[2017-11-10 07:05] LABS: POSITIVE DIFF @See below
[2017-11-10 07:08] LABS: MAGNESIUM 2.2 mg/dl (1.7-2.5)
[2017-11-10 07:08] LABS: PHOSPHORUS 2.7 mg/dl (2.5-4.9)
[2017-11-10] MEDS: LEVOTHYROXINE 50 MCG TAB PO (07:14)
[2017-11-10 07:18] LABS: ANION GAP 9 (8-16); BLOOD UREA NITROGEN 33 mg/dl (7-20); CARBON DIOXIDE 28 mmol/L (21-31); CHLORIDE 100 mmol/L (97-110); CREATININE 0.68 mg/dl (0.44-1.00); GLUCOSE 119 mg/dl (70-220); POTASSIUM 4.6 mmol/L (3.5-5.1); SODIUM 132 mmol/L (135-144)
[2017-11-10 07:33] LABS: INR 2.23; PROTIME 25.3 Sec (11.9-14.9)
[2017-11-10] MEDS: POLYETHYLENE GLYCOL 17 GM PACKET PO ×2 (09:00→20:29)
[2017-11-10] MEDS: LIDOCAINE 2% VISC 15 ML CUP PO ×3 (09:00→20:29)
[2017-11-10] MEDS: FISH OIL 1,000 MG CAP PO ×4 (09:00→20:29)
[2017-11-10] MEDS: MEXILETINE PO ×2 (09:06→20:26)
[2017-11-10] MEDS: DOFETILIDE 250 MCG PO ×2 (09:07→20:26)
[2017-11-10] MEDS: RANITIDINE 150 MG TAB PO (09:07)
[2017-11-10] MEDS: LACTOBACILLUS RHAMNOSUS CAP PO ×2 (09:07→20:25)
[2017-11-10] MEDS: LISINOPRIL 10 MG TAB PO (09:08)
[2017-11-10] MEDS: GUAIFENESIN/DM (SR) TAB PO ×2 (09:09→20:26)
[2017-11-10] MEDS: ASPIRIN (EC) 81 MG TAB PO (09:09)
[2017-11-10] MEDS: POTASSIUM CHLORIDE (SR) 20 MEQ TAB PO (09:09)
[2017-11-10] MEDS: FUROSEMIDE 20 MG TAB PO (09:09)
[2017-11-10] MEDS: AZITHROMYCIN 250 MG TAB PO (09:09)
[2017-11-10] MEDS: DOCUSATE SODIUM 100 MG CAP PO ×2 (09:10→20:26)
[2017-11-10] MEDS: THIAMINE 100 MG TAB PO (09:11)
[2017-11-10] MEDS: WARFARIN 2 MG TAB PO (16:50)
[2017-11-10] MEDS: ATORVASTATIN 20 MG TAB PO (20:26)
[2017-11-11] MEDS: METHYLPREDNISOLONE 125 MG INJ IV ×4 (00:24→20:37)
[2017-11-11] MEDS: ALBUTEROL/IPRATROPIUM (NEB) 3 ML AMP HHN ×4 (01:41→20:27)
[2017-11-11] MEDS: ACETYLCYSTEINE 20% 4 ML VIAL NEB ×3 (01:41→14:21)
[2017-11-11 07:08] LABS: ADD MAN DIFF? NO
[2017-11-11 07:11] LABS: ABNORMAL IP MESSAGE 1; BASOPHILS % 0.1 % (0.0-2.0); HEMATOCRIT 35.8 % (37.0-47.0); HEMOGLOBIN 12.3 g/dl (12.0-16.0); LYMPHOCYTES # 0.4 10^3/ul (0.8-2.9); LYMPHOCYTES % 3.8 % (15.0-51.0); MEAN CORPUSCULAR HGB CONC 34.4 g/dl (32.0-37.0); MEAN CORPUSCULAR VOLUME 98.9 fl (82.0-101.0); MEAN PLATELET VOLUME 10.5 fl (7.4-10.4); MONOCYTE # 0.2 10^3/ul (0.3-0.9); NEUTROPHIL # 10.6 10^3/ul (1.6-7.5); NEUTROPHILS % 93.7 % (39.0-77.0); PLATELET COUNT 154 10^3/UL (140-415); RED BLOOD COUNT 3.62 10^6/ul (4.20-5.40); RED CELL DISTRIBUTION WIDTH 14.4 % (11.5-14.5)
[2017-11-11 07:11] LABS: WHITE BLOOD COUNT 11.3 10^3/ul (4.8-10.8)
[2017-11-11 07:14] LABS: POSITIVE DIFF @See below
[2017-11-11] MEDS: LEVOTHYROXINE 50 MCG TAB PO (07:16)
[2017-11-11 07:30] LABS: INR 1.85; PROTIME 21.8 Sec (11.9-14.9); PT RATIO 1.7
[2017-11-11 07:34] LABS: ANION GAP 9 (8-16); BLOOD UREA NITROGEN 30 mg/dl (7-20); CALCIUM 7.8 mg/dl (8.4-10.2); CARBON DIOXIDE 27 mmol/L (21-31); CHLORIDE 102 mmol/L (97-110); CREATININE 0.65 mg/dl (0.44-1.00); GLUCOSE 127 mg/dl (70-220); POTASSIUM 4.6 mmol/L (3.5-5.1); SODIUM 133 mmol/L (135-144)
[2017-11-11 07:38] LABS: MAGNESIUM 2.2 mg/dl (1.7-2.5)
[2017-11-11 07:38] LABS: PHOSPHORUS 2.6 mg/dl (2.5-4.9)
[2017-11-11] MEDS: DOFETILIDE 250 MCG PO ×2 (08:56→20:40)
[2017-11-11] MEDS: MEXILETINE PO ×2 (08:56→20:39)
[2017-11-11] MEDS: LISINOPRIL 10 MG TAB PO (08:57)
[2017-11-11] MEDS: GUAIFENESIN/DM (SR) TAB PO ×2 (08:58→20:37)
[2017-11-11] MEDS: POTASSIUM CHLORIDE (SR) 20 MEQ TAB PO (08:58)
[2017-11-11] MEDS: AZITHROMYCIN 250 MG TAB PO (08:58)
[2017-11-11] MEDS: FUROSEMIDE 20 MG TAB PO (08:58)
[2017-11-11] MEDS: LACTOBACILLUS RHAMNOSUS CAP PO ×2 (08:59→20:37)
[2017-11-11] MEDS: DOCUSATE SODIUM 100 MG CAP PO ×2 (08:59→20:37)
[2017-11-11] MEDS: THIAMINE 100 MG TAB PO (08:59)
[2017-11-11] MEDS: POLYETHYLENE GLYCOL 17 GM PACKET PO ×2 (09:00→20:38)
[2017-11-11] MEDS: LIDOCAINE 2% VISC 15 ML CUP PO ×3 (09:00→20:40)
[2017-11-11] MEDS: FISH OIL 1,000 MG CAP PO ×4 (09:00→20:40)
[2017-11-11] MEDS: RANITIDINE 150 MG TAB PO (09:00)
[2017-11-11] MEDS: ASPIRIN (EC) 81 MG TAB PO (09:03)
[2017-11-11] MEDS: WARFARIN 2 MG TAB PO (16:52)
[2017-11-11] MEDS: ATORVASTATIN 20 MG TAB PO (20:37)
[2017-11-12] MEDS: ALBUTEROL/IPRATROPIUM (NEB) 3 ML AMP HHN ×4 (01:13→19:01)
[2017-11-12] MEDS: LEVOTHYROXINE 50 MCG TAB PO (06:03)
[2017-11-12 06:11] LABS: ADD MAN DIFF? NO
[2017-11-12 06:16] LABS: ABNORMAL IP MESSAGE 1; BASOPHILS % 0.1 % (0.0-2.0); HEMATOCRIT 33.9 % (37.0-47.0); HEMOGLOBIN 11.7 g/dl (12.0-16.0); LYMPHOCYTES # 0.3 10^3/ul (0.8-2.9); LYMPHOCYTES % 2.9 % (15.0-51.0); MEAN CORPUSCULAR HEMOGLOBIN 34.4 pg (29.0-33.0); MEAN CORPUSCULAR HGB CONC 34.5 g/dl (32.0-37.0); MEAN CORPUSCULAR VOLUME 99.7 fl (82.0-101.0); MEAN PLATELET VOLUME 10.3 fl (7.4-10.4); MONOCYTE # 0.2 10^3/ul (0.3-0.9); MONOCYTES % 1.6 % (0.0-11.0); NEUTROPHIL # 10.5 10^3/ul (1.6-7.5); NEUTROPHILS % 94.9 % (39.0-77.0); NUCLEATED RED BLOOD CELLS% 0.2 /100WBC (0.0-0.0); PLATELET COUNT 145 10^3/UL (140-415); RED CELL DISTRIBUTION WIDTH 14.5 % (11.5-14.5)
[2017-11-12 06:16] LABS: WHITE BLOOD COUNT 11.1 10^3/ul (4.8-10.8)
[2017-11-12 06:20] LABS: POSITIVE DIFF @See below
[2017-11-12 06:35] LABS: INR 1.72; PROTIME 20.5 Sec (11.9-14.9); PT RATIO 1.6
[2017-11-12 06:47] LABS: ANION GAP 8 (8-16); BLOOD UREA NITROGEN 29 mg/dl (7-20); CALCIUM 7.6 mg/dl (8.4-10.2); CARBON DIOXIDE 27 mmol/L (21-31); CHLORIDE 101 mmol/L (97-110); GLUCOSE 164 mg/dl (70-220); POTASSIUM 4.4 mmol/L (3.5-5.1); SODIUM 132 mmol/L (135-144)
[2017-11-12 07:06] LABS: PHOSPHORUS 2.2 mg/dl (2.5-4.9)
[2017-11-12 07:06] LABS: MAGNESIUM 2.2 mg/dl (1.7-2.5)
[2017-11-12] MEDS: LACTOBACILLUS RHAMNOSUS CAP PO ×2 (08:23→20:44)
[2017-11-12] MEDS: MEXILETINE PO ×2 (08:23→20:42)
[2017-11-12] MEDS: DOFETILIDE 250 MCG PO ×2 (08:23→20:42)
[2017-11-12] MEDS: AZITHROMYCIN 250 MG TAB PO (08:23)
[2017-11-12] MEDS: METHYLPREDNISOLONE 125 MG INJ IV ×2 (08:23→20:40)
[2017-11-12] MEDS: ASPIRIN (EC) 81 MG TAB PO (08:23)
[2017-11-12] MEDS: GUAIFENESIN/DM (SR) TAB PO ×2 (08:23→20:42)
[2017-11-12] MEDS: LISINOPRIL 10 MG TAB PO (08:24)
[2017-11-12] MEDS: POTASSIUM CHLORIDE (SR) 20 MEQ TAB PO (08:24)
[2017-11-12] MEDS: POLYETHYLENE GLYCOL 17 GM PACKET PO ×2 (08:25→20:44)
[2017-11-12] MEDS: FUROSEMIDE 40 MG TAB PO (08:25)
[2017-11-12] MEDS: THIAMINE 100 MG TAB PO (08:25)
[2017-11-12] MEDS: DOCUSATE SODIUM 100 MG CAP PO ×2 (08:26→20:42)
[2017-11-12] MEDS: FISH OIL 1,000 MG CAP PO ×4 (08:26→20:43)
[2017-11-12] MEDS: RANITIDINE 150 MG TAB PO (08:27)
[2017-11-12] MEDS: LIDOCAINE 2% VISC 15 ML CUP PO ×3 (09:00→20:44)
[2017-11-12] MEDS: SODIUM PHOSPHATE 15 MMOL in SOD CHLORIDE 0.9% 250 ML IVPB (11:58)
[2017-11-12] MEDS: WARFARIN 5 MG TAB PO (17:04)
[2017-11-12] MEDS: ATORVASTATIN 20 MG TAB PO (20:44)
[2017-11-13] MEDS: ALBUTEROL/IPRATROPIUM (NEB) 3 ML AMP HHN ×4 (01:07→20:00)
[2017-11-13] MEDS: LEVOTHYROXINE 50 MCG TAB PO (06:28)
[2017-11-13 07:29] LABS: INR 1.91; PROTIME 22.3 Sec (11.9-14.9); PT RATIO 1.7
[2017-11-13] MEDS: FUROSEMIDE 40 MG TAB PO (09:03)
[2017-11-13] MEDS: POLYETHYLENE GLYCOL 17 GM PACKET PO ×2 (09:03→21:00)
[2017-11-13] MEDS: LIDOCAINE 2% VISC 15 ML CUP PO ×3 (09:03→21:00)
[2017-11-13] MEDS: LACTOBACILLUS RHAMNOSUS CAP PO ×2 (09:04→22:39)
[2017-11-13] MEDS: GUAIFENESIN/DM (SR) TAB PO ×2 (09:04→22:38)
[2017-11-13] MEDS: LISINOPRIL 10 MG TAB PO (09:04)
[2017-11-13] MEDS: METHYLPREDNISOLONE 125 MG INJ IV (09:04)
[2017-11-13] MEDS: RANITIDINE 150 MG TAB PO (09:05)
[2017-11-13] MEDS: MEXILETINE PO ×2 (09:05→22:43)
[2017-11-13] MEDS: THIAMINE 100 MG TAB PO (09:05)
[2017-11-13] MEDS: DOCUSATE SODIUM 100 MG CAP PO ×2 (09:05→21:00)
[2017-11-13] MEDS: DOFETILIDE 250 MCG PO ×2 (09:05→22:43)
[2017-11-13] MEDS: POTASSIUM CHLORIDE (SR) 20 MEQ TAB PO (09:05)
[2017-11-13] MEDS: ASPIRIN (EC) 81 MG TAB PO (09:05)
[2017-11-13] MEDS: FISH OIL 1,000 MG CAP PO ×4 (09:05→21:00)
[2017-11-13] MEDS: SODIUM PHOSPHATE 15 MMOL in SOD CHLORIDE 0.9% 250 ML IVPB (10:00)
[2017-11-13] MEDS: MEROPENEM 500MG/50 ML (PMX) 50 ML IVPB ×2 (16:30→22:48)
[2017-11-13] MEDS: WARFARIN 5 MG TAB PO (17:00)
[2017-11-13] MEDS: ALTEPLASE (CATHFLO) 2 MG INJ CATHETER (17:33)
[2017-11-13] MEDS: SOD CHLORIDE 0.9% 100 ML (18:59)
[2017-11-13] MEDS: IOHEXOL 100 ML (18:59)
[2017-11-13] MEDS: METHYLPREDNISOLONE 40 MG INJ IV (21:00)
[2017-11-13] MEDS: ATORVASTATIN 20 MG TAB PO (22:39)
[2017-11-14] MEDS: ALBUTEROL/IPRATROPIUM (NEB) 3 ML AMP HHN ×4 (01:10→19:24)
[2017-11-14] MEDS: MEROPENEM 500MG/50 ML (PMX) 50 ML IVPB ×3 (06:26→21:48)
[2017-11-14] MEDS: LEVOTHYROXINE 50 MCG TAB PO (06:27)
[2017-11-14] MEDS: FUROSEMIDE 40 MG INJ IV (06:27)
[2017-11-14 06:52] LABS: ADD MAN DIFF? NO
[2017-11-14 07:12] LABS: WHITE BLOOD COUNT 6.1 10^3/ul (4.8-10.8)
[2017-11-14 07:12] LABS: ABNORMAL IP MESSAGE 1; BASOPHILS % 0.2 % (0.0-2.0); HEMOGLOBIN 11.2 g/dl (12.0-16.0); LYMPHOCYTES # 0.3 10^3/ul (0.8-2.9); LYMPHOCYTES % 4.7 % (15.0-51.0); MEAN CORPUSCULAR HEMOGLOBIN 33.9 pg (29.0-33.0); MEAN CORPUSCULAR HGB CONC 33.9 g/dl (32.0-37.0); MEAN PLATELET VOLUME 10.4 fl (7.4-10.4); MONOCYTE # 0.2 10^3/ul (0.3-0.9); MONOCYTES % 2.4 % (0.0-11.0); NEUTROPHIL # 5.7 10^3/ul (1.6-7.5); NEUTROPHILS % 92.2 % (39.0-77.0); NUCLEATED RED BLOOD CELLS% 0.3 /100WBC (0.0-0.0); PLATELET COUNT 135 10^3/UL (140-415); RED CELL DISTRIBUTION WIDTH 14.6 % (11.5-14.5)
[2017-11-14 07:14] LABS: POSITIVE DIFF @See below
[2017-11-14 07:25] LABS: INR 2.02; PROTIME 23.3 Sec (11.9-14.9); PT RATIO 1.8
[2017-11-14 07:39] LABS: MAGNESIUM 2.1 mg/dl (1.7-2.5)
[2017-11-14 07:39] LABS: PHOSPHORUS 2.5 mg/dl (2.5-4.9)
[2017-11-14 07:52] LABS: ANION GAP 9 (8-16); BLOOD UREA NITROGEN 27 mg/dl (7-20); CALCIUM 7.2 mg/dl (8.4-10.2); CARBON DIOXIDE 30 mmol/L (21-31); CHLORIDE 103 mmol/L (97-110); CREATININE 0.53 mg/dl (0.44-1.00); GLUCOSE 139 mg/dl (70-220); POTASSIUM 4.1 mmol/L (3.5-5.1); SODIUM 138 mmol/L (135-144)
[2017-11-14] MEDS: POLYETHYLENE GLYCOL 17 GM PACKET PO ×3 (09:00→21:48)
[2017-11-14] MEDS: LIDOCAINE 2% VISC 15 ML CUP PO ×4 (09:00→21:48)
[2017-11-14] MEDS: FISH OIL 1,000 MG CAP PO ×6 (09:00→21:48)
[2017-11-14] MEDS: MEXILETINE PO ×2 (09:28→21:47)
[2017-11-14] MEDS: DOCUSATE SODIUM 100 MG CAP PO ×2 (09:28→21:47)
[2017-11-14] MEDS: METHYLPREDNISOLONE 40 MG INJ IV ×2 (09:28→21:46)
[2017-11-14] MEDS: DOFETILIDE 250 MCG PO ×2 (09:28→21:47)
[2017-11-14] MEDS: LACTOBACILLUS RHAMNOSUS CAP PO ×2 (09:30→21:48)
[2017-11-14] MEDS: GUAIFENESIN/DM (SR) TAB PO ×2 (09:42→21:48)
[2017-11-14] MEDS: RANITIDINE 150 MG TAB PO (09:42)
[2017-11-14] MEDS: LISINOPRIL 10 MG TAB PO (09:42)
[2017-11-14] MEDS: THIAMINE 100 MG TAB PO (09:42)
[2017-11-14] MEDS: ASPIRIN (EC) 81 MG TAB PO (09:42)
[2017-11-14] MEDS: POTASSIUM CHLORIDE (SR) 20 MEQ TAB PO (09:42)
[2017-11-14 15:29] LABS: AADO2 Arterial 227.3 mmHg (7.0-24.0); Allen Test ACCEPTAB; Arterial Base Excess 4.6 mmol/L (-3.0-3); Arterial Blood Gas Oxygen Sat 96.3 mmHG (95.0-100.0); Arterial COHb 0.3 % (0.0-3.0); Arterial Fraction of Oxyhgb 95.5 % (93.0-99.0); Arterial HCO3 28.5 mmol/L (22.0-26.0); Arterial MetHb 0.5 % (0.0-1.5); Arterial Total Hemglobin 13.3 g/dl (12.0-18.0); Arterial pCO2 39.6 mmhg (35-45); MODE HFNC; Site Right Radial
[2017-11-14] MEDS: WARFARIN 5 MG TAB PO (16:49)
[2017-11-14] MEDS: ATORVASTATIN 20 MG TAB PO (21:48)
[2017-11-15] MEDS: ALBUTEROL/IPRATROPIUM (NEB) 3 ML AMP HHN ×4 (01:00→19:27)
[2017-11-15] MEDS: FUROSEMIDE 40 MG INJ IV (06:01)
[2017-11-15] MEDS: MEROPENEM 500MG/50 ML (PMX) 50 ML IVPB ×3 (06:01→22:49)
[2017-11-15] MEDS: LEVOTHYROXINE 50 MCG TAB PO (06:02)
[2017-11-15 07:11] LABS: ADD MAN DIFF? NO
[2017-11-15 07:12] LABS: ABNORMAL IP MESSAGE 1; BASOPHILS % 0.2 % (0.0-2.0); HEMATOCRIT 35.6 % (37.0-47.0); HEMOGLOBIN 12.3 g/dl (12.0-16.0); LYMPHOCYTES # 0.4 10^3/ul (0.8-2.9); LYMPHOCYTES % 6.4 % (15.0-51.0); MEAN CORPUSCULAR HEMOGLOBIN 34.4 pg (29.0-33.0); MEAN CORPUSCULAR HGB CONC 34.6 g/dl (32.0-37.0); MEAN CORPUSCULAR VOLUME 99.4 fl (82.0-101.0); MEAN PLATELET VOLUME 10.2 fl (7.4-10.4); MONOCYTE # 0.2 10^3/ul (0.3-0.9); MONOCYTES % 3.4 % (0.0-11.0); NEUTROPHIL # 5.4 10^3/ul (1.6-7.5); PLATELET COUNT 154 10^3/UL (140-415); RED BLOOD COUNT 3.58 10^6/ul (4.20-5.40); RED CELL DISTRIBUTION WIDTH 14.2 % (11.5-14.5)
[2017-11-15 07:12] LABS: WHITE BLOOD COUNT 6.1 10^3/ul (4.8-10.8)
[2017-11-15 07:19] LABS: POSITIVE DIFF @See below
[2017-11-15 07:31] LABS: PHOSPHORUS 2.6 mg/dl (2.5-4.9)
[2017-11-15 07:31] LABS: ANION GAP 10 (8-16); BLOOD UREA NITROGEN 32 mg/dl (7-20); CALCIUM 7.4 mg/dl (8.4-10.2); CARBON DIOXIDE 32 mmol/L (21-31); CHLORIDE 99 mmol/L (97-110); CREATININE 0.57 mg/dl (0.44-1.00); GLUCOSE 124 mg/dl (70-220); MAGNESIUM 2.1 mg/dl (1.7-2.5); POTASSIUM 3.9 mmol/L (3.5-5.1); SODIUM 137 mmol/L (135-144)
[2017-11-15 07:38] LABS: INR 1.51; PROTIME 18.5 Sec (11.9-14.9); PT RATIO 1.4
[2017-11-15] MEDS: LIDOCAINE 2% VISC 15 ML CUP PO ×3 (09:00→21:00)
[2017-11-15] MEDS: FISH OIL 1,000 MG CAP PO ×4 (09:00→20:35)
[2017-11-15] MEDS: POLYETHYLENE GLYCOL 17 GM PACKET PO ×2 (09:00→20:36)
[2017-11-15] MEDS: LACTOBACILLUS RHAMNOSUS CAP PO ×2 (09:34→21:00)
[2017-11-15] MEDS: DOCUSATE SODIUM 100 MG CAP PO ×2 (09:34→20:49)
[2017-11-15] MEDS: GUAIFENESIN/DM (SR) TAB PO ×2 (09:34→22:49)
[2017-11-15] MEDS: METHYLPREDNISOLONE 40 MG INJ IV ×2 (09:34→20:34)
[2017-11-15] MEDS: THIAMINE 100 MG TAB PO (09:34)
[2017-11-15] MEDS: POTASSIUM CHLORIDE (SR) 20 MEQ TAB PO (09:35)
[2017-11-15] MEDS: RANITIDINE 150 MG TAB PO (09:35)
[2017-11-15] MEDS: ASPIRIN (EC) 81 MG TAB PO (09:35)
[2017-11-15] MEDS: MEXILETINE PO ×2 (09:36→20:35)
[2017-11-15] MEDS: DOFETILIDE 250 MCG PO ×2 (09:36→20:35)
[2017-11-15] MEDS: LISINOPRIL 10 MG TAB PO (09:36)
[2017-11-15] MEDS: WARFARIN 5 MG TAB PO (17:14)
[2017-11-15] MEDS: ATORVASTATIN 20 MG TAB PO (20:34)
[2017-11-16] MEDS: ALBUTEROL/IPRATROPIUM (NEB) 3 ML AMP HHN ×4 (01:56→21:14)
[2017-11-16] MEDS: FUROSEMIDE 40 MG INJ IV (06:30)
[2017-11-16] MEDS: LEVOTHYROXINE 50 MCG TAB PO (06:30)
[2017-11-16] MEDS: MEROPENEM 500MG/50 ML (PMX) 50 ML IVPB ×3 (06:30→21:26)
[2017-11-16 06:38] LABS: ADD MAN DIFF? NO
[2017-11-16 06:40] LABS: ABNORMAL IP MESSAGE 1; BASOPHILS % 0.2 % (0.0-2.0); HEMATOCRIT 36.1 % (37.0-47.0); HEMOGLOBIN 12.2 g/dl (12.0-16.0); LYMPHOCYTES # 0.5 10^3/ul (0.8-2.9); LYMPHOCYTES % 7.7 % (15.0-51.0); MEAN CORPUSCULAR HEMOGLOBIN 34.8 pg (29.0-33.0); MEAN CORPUSCULAR HGB CONC 33.8 g/dl (32.0-37.0); MEAN CORPUSCULAR VOLUME 102.8 fl (82.0-101.0); MEAN PLATELET VOLUME 10.1 fl (7.4-10.4); MONOCYTE # 0.3 10^3/ul (0.3-0.9); MONOCYTES % 3.9 % (0.0-11.0); NEUTROPHIL # 5.6 10^3/ul (1.6-7.5); NEUTROPHILS % 86.8 % (39.0-77.0); PLATELET COUNT 150 10^3/UL (140-415); RED BLOOD COUNT 3.51 10^6/ul (4.20-5.40); RED CELL DISTRIBUTION WIDTH 14.4 % (11.5-14.5)
[2017-11-16 06:40] LABS: WHITE BLOOD COUNT 6.5 10^3/ul (4.8-10.8)
[2017-11-16 07:08] LABS: POSITIVE DIFF @See below
[2017-11-16 07:12] LABS: INR 1.59; PROTIME 19.3 Sec (11.9-14.9); PT RATIO 1.5
[2017-11-16 07:15] LABS: ANION GAP 9 (8-16); BLOOD UREA NITROGEN 40 mg/dl (7-20); CARBON DIOXIDE 30 mmol/L (21-31); CHLORIDE 100 mmol/L (97-110); CREATININE 0.55 mg/dl (0.44-1.00); GLUCOSE 136 mg/dl (70-220); POTASSIUM 4.3 mmol/L (3.5-5.1); SODIUM 135 mmol/L (135-144)
[2017-11-16 07:49] LABS: PHOSPHORUS 2.8 mg/dl (2.5-4.9)
[2017-11-16 07:49] LABS: MAGNESIUM 2.1 mg/dl (1.7-2.5)
[2017-11-16] MEDS: GUAIFENESIN/DM (SR) TAB PO (08:55)
[2017-11-16] MEDS: LACTOBACILLUS RHAMNOSUS CAP PO ×2 (08:56→21:25)
[2017-11-16] MEDS: RANITIDINE 150 MG TAB PO (08:57)
[2017-11-16] MEDS: LISINOPRIL 10 MG TAB PO (08:58)
[2017-11-16] MEDS: POTASSIUM CHLORIDE (SR) 20 MEQ TAB PO (08:58)
[2017-11-16] MEDS: ASPIRIN (EC) 81 MG TAB PO (08:58)
[2017-11-16] MEDS: FISH OIL 1,000 MG CAP PO ×4 (09:00→21:00)
[2017-11-16] MEDS: THIAMINE 100 MG TAB PO (09:00)
[2017-11-16] MEDS: DOCUSATE SODIUM 100 MG CAP PO ×2 (09:00→21:00)
[2017-11-16] MEDS: POLYETHYLENE GLYCOL 17 GM PACKET PO ×2 (09:00→21:00)
[2017-11-16] MEDS: LIDOCAINE 2% VISC 15 ML CUP PO ×3 (09:00→21:00)
[2017-11-16] MEDS: DOFETILIDE 250 MCG PO ×2 (09:04→21:24)
[2017-11-16] MEDS: MEXILETINE PO ×2 (09:04→21:24)
[2017-11-16] MEDS: METHYLPREDNISOLONE 40 MG INJ IV (09:13)
[2017-11-16] MEDS: WARFARIN 5 MG TAB PO (17:17)
[2017-11-16] MEDS: ATORVASTATIN 20 MG TAB PO (21:25)
[2017-11-17] MEDS: GUAIFENESIN/DM (SR) TAB PO ×3 (01:39→21:40)
[2017-11-17] MEDS: ALBUTEROL/IPRATROPIUM (NEB) 3 ML AMP HHN ×4 (03:00→20:37)
[2017-11-17] MEDS: MEROPENEM 500MG/50 ML (PMX) 50 ML IVPB ×3 (06:18→21:49)
[2017-11-17] MEDS: LEVOTHYROXINE 50 MCG TAB PO (06:19)
[2017-11-17] MEDS: FUROSEMIDE 40 MG INJ IV (06:19)
[2017-11-17 09:00] LABS: ADD MAN DIFF? NO
[2017-11-17] MEDS: LIDOCAINE 2% VISC 15 ML CUP PO ×3 (09:00→21:00)
[2017-11-17] MEDS: POLYETHYLENE GLYCOL 17 GM PACKET PO ×2 (09:00→21:00)
[2017-11-17] MEDS: FISH OIL 1,000 MG CAP PO ×4 (09:00→21:00)
[2017-11-17] MEDS: DOCUSATE SODIUM 100 MG CAP PO ×2 (09:00→21:00)
[2017-11-17] MEDS: LISINOPRIL 10 MG TAB PO (09:00)
[2017-11-17 09:10] LABS: Allen Test ACCEPTAB; Arterial Base Excess 10.2 mmol/L (-3.0-3); Arterial Blood Gas Oxygen Sat 91.4 mmHG (95.0-100.0); Arterial COHb 0.2 % (0.0-3.0); Arterial HCO3 33.8 mmol/L (22.0-26.0); Arterial MetHb 0.2 % (0.0-1.5); Arterial Total Hemglobin 15.7 g/dl (12.0-18.0); Arterial pCO2 41.1 mmhg (35-45); MODE NASAL CANNULA; Site Right Radial
[2017-11-17] MEDS: LACTOBACILLUS RHAMNOSUS CAP PO ×2 (09:38→21:40)
[2017-11-17] MEDS: THIAMINE 100 MG TAB PO (09:39)
[2017-11-17] MEDS: METHYLPREDNISOLONE 40 MG INJ IV (09:39)
[2017-11-17] MEDS: ASPIRIN (EC) 81 MG TAB PO (09:39)
[2017-11-17] MEDS: POTASSIUM CHLORIDE (SR) 20 MEQ TAB PO (09:40)
[2017-11-17] MEDS: RANITIDINE 150 MG TAB PO (09:40)
[2017-11-17] MEDS: MEXILETINE PO ×2 (09:41→21:42)
[2017-11-17] MEDS: DOFETILIDE 250 MCG PO ×2 (09:41→21:42)
[2017-11-17 12:23] LABS: ABNORMAL IP MESSAGE 1; BASOPHILS % 0.4 % (0.0-2.0); EOSINOPHILS # 0.2 10^3/ul (0.0-0.5); EOSINOPHILS % 2.2 % (0.0-7.0); HEMATOCRIT 39.3 % (37.0-47.0); HEMOGLOBIN 13.3 g/dl (12.0-16.0); LYMPHOCYTES # 0.4 10^3/ul (0.8-2.9); MEAN CORPUSCULAR HEMOGLOBIN 34.9 pg (29.0-33.0); MEAN CORPUSCULAR HGB CONC 33.8 g/dl (32.0-37.0); MEAN CORPUSCULAR VOLUME 103.1 fl (82.0-101.0); MEAN PLATELET VOLUME 10.7 fl (7.4-10.4); MONOCYTE # 0.3 10^3/ul (0.3-0.9); NEUTROPHIL # 6.3 10^3/ul (1.6-7.5); NEUTROPHILS % 86.4 % (39.0-77.0); PLATELET COUNT 140 10^3/UL (140-415); RED BLOOD COUNT 3.81 10^6/ul (4.20-5.40); RED CELL DISTRIBUTION WIDTH 14.5 % (11.5-14.5)
[2017-11-17 12:23] LABS: WHITE BLOOD COUNT 7.3 10^3/ul (4.8-10.8)
[2017-11-17 12:28] LABS: POSITIVE DIFF @See below
[2017-11-17 12:44] LABS: ANION GAP 10 (8-16); BLOOD UREA NITROGEN 37 mg/dl (7-20); CALCIUM 8.1 mg/dl (8.4-10.2); CARBON DIOXIDE 32 mmol/L (21-31); CHLORIDE 97 mmol/L (97-110); CREATININE 0.58 mg/dl (0.44-1.00); GLUCOSE 101 mg/dl (70-220); MAGNESIUM 2.1 mg/dl (1.7-2.5); PHOSPHORUS 2.8 mg/dl (2.5-4.9); POTASSIUM 4.1 mmol/L (3.5-5.1); SODIUM 135 mmol/L (135-144)
[2017-11-17] MEDS: ATORVASTATIN 20 MG TAB PO (21:40)
[2017-11-18] MEDS: ALBUTEROL/IPRATROPIUM (NEB) 3 ML AMP HHN ×4 (02:00→19:59)
[2017-11-18] MEDS: FUROSEMIDE 40 MG INJ IV (05:58)
[2017-11-18] MEDS: MEROPENEM 500MG/50 ML (PMX) 50 ML IVPB ×3 (05:59→21:12)
[2017-11-18] MEDS: LEVOTHYROXINE 50 MCG TAB PO (06:00)
[2017-11-18 08:56] LABS: INR 1.34; PROTIME 16.8 Sec (11.9-14.9); PT RATIO 1.3
[2017-11-18] MEDS: POLYETHYLENE GLYCOL 17 GM PACKET PO ×2 (09:00→21:00)
[2017-11-18] MEDS: DOCUSATE SODIUM 100 MG CAP PO ×2 (09:00→21:00)
[2017-11-18] MEDS: LIDOCAINE 2% VISC 15 ML CUP PO ×3 (09:00→21:00)
[2017-11-18] MEDS: GUAIFENESIN/DM (SR) TAB PO ×2 (09:47→21:09)
[2017-11-18] MEDS: RANITIDINE 150 MG TAB PO (09:47)
[2017-11-18] MEDS: THIAMINE 100 MG TAB PO (09:48)
[2017-11-18] MEDS: LISINOPRIL 10 MG TAB PO (09:48)
[2017-11-18] MEDS: POTASSIUM CHLORIDE (SR) 20 MEQ TAB PO (09:48)
[2017-11-18] MEDS: ASPIRIN (EC) 81 MG TAB PO (09:48)
[2017-11-18] MEDS: FISH OIL 1,000 MG CAP PO ×4 (09:49→21:00)
[2017-11-18] MEDS: METHYLPREDNISOLONE 40 MG INJ IV (09:49)
[2017-11-18] MEDS: MEXILETINE PO ×2 (09:51→21:00)
[2017-11-18] MEDS: DOFETILIDE 250 MCG PO ×2 (09:51→21:00)
[2017-11-18] MEDS: LACTOBACILLUS RHAMNOSUS CAP PO ×2 (14:13→21:09)
[2017-11-18] MEDS: ATORVASTATIN 20 MG TAB PO (21:09)
[2017-11-19] MEDS: ALBUTEROL/IPRATROPIUM (NEB) 3 ML AMP HHN ×4 (01:01→19:08)
[2017-11-19] MEDS: MEROPENEM 500MG/50 ML (PMX) 50 ML IVPB ×3 (06:23→21:26)
[2017-11-19] MEDS: FUROSEMIDE 40 MG INJ IV (06:23)
[2017-11-19] MEDS: LEVOTHYROXINE 50 MCG TAB PO (06:23)
[2017-11-19 08:10] LABS: INR 1.02; PROTIME 13.5 Sec (11.9-14.9); PT RATIO 1.1
[2017-11-19] MEDS: LIDOCAINE 2% VISC 15 ML CUP PO ×4 (09:00→20:43)
[2017-11-19] MEDS: POLYETHYLENE GLYCOL 17 GM PACKET PO ×2 (09:00→20:40)
[2017-11-19] MEDS: FISH OIL 1,000 MG CAP PO ×5 (09:00→20:43)
[2017-11-19] MEDS: DOCUSATE SODIUM 100 MG CAP PO ×2 (09:00→20:38)
[2017-11-19] MEDS: ASPIRIN (EC) 81 MG TAB PO (09:55)
[2017-11-19] MEDS: MEXILETINE PO ×2 (09:55→20:36)
[2017-11-19] MEDS: DOFETILIDE 250 MCG PO ×2 (09:55→20:36)
[2017-11-19] MEDS: METHYLPREDNISOLONE 40 MG INJ IV (09:55)
[2017-11-19] MEDS: LACTOBACILLUS RHAMNOSUS CAP PO ×2 (09:56→20:39)
[2017-11-19] MEDS: POTASSIUM CHLORIDE (SR) 20 MEQ TAB PO (09:56)
[2017-11-19] MEDS: RANITIDINE 150 MG TAB PO (09:56)
[2017-11-19] MEDS: THIAMINE 100 MG TAB PO (09:56)
[2017-11-19] MEDS: GUAIFENESIN/DM (SR) TAB PO ×2 (09:56→20:40)
[2017-11-19] MEDS: LISINOPRIL 5 MG TAB PO (09:57)
[2017-11-19] MEDS ORDERED: LISINOPRIL 5 MG TAB PO (10:00)
[2017-11-19] MEDS: LEVOFLOXACIN 500 MG TAB PO (16:39)
[2017-11-19] MEDS: ATORVASTATIN 20 MG TAB PO (20:40)
[2017-11-20] MEDS: ALBUTEROL/IPRATROPIUM (NEB) 3 ML AMP HHN ×5 (01:25→20:44)
[2017-11-20] MEDS: LEVOFLOXACIN 500 MG TAB PO (06:17)
[2017-11-20] MEDS: LEVOTHYROXINE 50 MCG TAB PO (06:18)
[2017-11-20] MEDS: FUROSEMIDE 40 MG INJ IV (06:18)
[2017-11-20] MEDS: MEROPENEM 500MG/50 ML (PMX) 50 ML IVPB ×3 (06:19→21:00)
[2017-11-20] MEDS: DOFETILIDE 250 MCG PO ×2 (08:45→20:51)
[2017-11-20] MEDS: MEXILETINE PO ×2 (08:45→20:52)
[2017-11-20] MEDS: FISH OIL 1,000 MG CAP PO ×4 (08:46→20:53)
[2017-11-20] MEDS: DOCUSATE SODIUM 100 MG CAP PO ×2 (08:47→20:53)
[2017-11-20] MEDS: POLYETHYLENE GLYCOL 17 GM PACKET PO ×2 (08:47→20:54)
[2017-11-20] MEDS: GUAIFENESIN/DM (SR) TAB PO ×2 (08:47→20:52)
[2017-11-20] MEDS: LIDOCAINE 2% VISC 15 ML CUP PO ×3 (08:48→20:54)
[2017-11-20] MEDS: METHYLPREDNISOLONE 40 MG INJ IV (08:49)
[2017-11-20] MEDS: RANITIDINE 150 MG TAB PO (08:49)
[2017-11-20] MEDS: LACTOBACILLUS RHAMNOSUS CAP PO ×2 (08:49→21:00)
[2017-11-20] MEDS: POTASSIUM CHLORIDE (SR) 20 MEQ TAB PO (08:50)
[2017-11-20] MEDS: LISINOPRIL 5 MG TAB PO (08:50)
[2017-11-20] MEDS: ASPIRIN (EC) 81 MG TAB PO (08:50)
[2017-11-20] MEDS: THIAMINE 100 MG TAB PO (08:51)
[2017-11-20 08:53] LABS: INR 0.89; PROTIME 12.1 Sec (11.9-14.9); PT RATIO 0.9
[2017-11-20 08:54] LABS: ANION GAP 10 (8-16); BLOOD UREA NITROGEN 46 mg/dl (7-20); CALCIUM 7.9 mg/dl (8.4-10.2); CARBON DIOXIDE 30 mmol/L (21-31); CHLORIDE 97 mmol/L (97-110); GLUCOSE 96 mg/dl (70-220); MAGNESIUM 2.1 mg/dl (1.7-2.5); PHOSPHORUS 2.9 mg/dl (2.5-4.9); POTASSIUM 3.6 mmol/L (3.5-5.1); SODIUM 133 mmol/L (135-144)
[2017-11-20] MEDS ORDERED: VANCOMYCIN IV PER PHARMACY XX (12:00)
[2017-11-20] MEDS: VANCOMYCIN 1.5 GM in SOD CHLORIDE 0.9% 250 ML IVPB (15:41)
[2017-11-20] MEDS: ATORVASTATIN 20 MG TAB PO (20:52)
[2017-11-21] MEDS: ALBUTEROL/IPRATROPIUM (NEB) 3 ML AMP HHN ×6 (00:01→21:25)
[2017-11-21] MEDS: VANCOMYCIN 750 MG in DEXTROSE 5% 150 ML IVPB ×2 (03:21→17:17)
[2017-11-21] MEDS: LEVOFLOXACIN 500 MG TAB PO (05:13)
[2017-11-21] MEDS: FUROSEMIDE 40 MG INJ IV (05:14)
[2017-11-21] MEDS: MEROPENEM 500MG/50 ML (PMX) 50 ML IVPB ×3 (05:14→21:54)
[2017-11-21] MEDS: LEVOTHYROXINE 50 MCG TAB PO (06:15)
[2017-11-21 08:34] LABS: ADD MAN DIFF? NO
[2017-11-21 08:43] LABS: WHITE BLOOD COUNT 8.3 10^3/ul (4.8-10.8)
[2017-11-21 08:43] LABS: BASOPHILS % 0.2 % (0.0-2.0); EOSINOPHILS # 0.1 10^3/ul (0.0-0.5); EOSINOPHILS % 0.8 % (0.0-7.0); HEMATOCRIT 39.2 % (37.0-47.0); HEMOGLOBIN 13.3 g/dl (12.0-16.0); LYMPHOCYTES # 1.2 10^3/ul (0.8-2.9); LYMPHOCYTES % 14.2 % (15.0-51.0); MEAN CORPUSCULAR HEMOGLOBIN 33.8 pg (29.0-33.0); MEAN CORPUSCULAR HGB CONC 33.9 g/dl (32.0-37.0); MEAN CORPUSCULAR VOLUME 99.7 fl (82.0-101.0); MEAN PLATELET VOLUME 10.1 fl (7.4-10.4); MONOCYTE # 0.3 10^3/ul (0.3-0.9); MONOCYTES % 3.8 % (0.0-11.0); NEUTROPHIL # 6.4 10^3/ul (1.6-7.5); NEUTROPHILS % 77.2 % (39.0-77.0); PLATELET COUNT 139 10^3/UL (140-415); RED BLOOD COUNT 3.93 10^6/ul (4.20-5.40)
[2017-11-21] MEDS: DOCUSATE SODIUM 100 MG CAP PO ×2 (09:00→21:00)
[2017-11-21] MEDS: LIDOCAINE 2% VISC 15 ML CUP PO ×3 (09:00→22:01)
[2017-11-21] MEDS: FISH OIL 1,000 MG CAP PO ×4 (09:00→21:00)
[2017-11-21] MEDS: POLYETHYLENE GLYCOL 17 GM PACKET PO ×2 (09:00→21:00)
[2017-11-21 09:29] LABS: ANION GAP 10 (8-16); BLOOD UREA NITROGEN 41 mg/dl (7-20); CALCIUM 7.6 mg/dl (8.4-10.2); CARBON DIOXIDE 30 mmol/L (21-31); CHLORIDE 96 mmol/L (97-110); CREATININE 0.72 mg/dl (0.44-1.00); GLUCOSE 94 mg/dl (70-220); PHOSPHORUS 2.7 mg/dl (2.5-4.9); SODIUM 133 mmol/L (135-144)
[2017-11-21 09:32] LABS: POTASSIUM 2.9 mmol/L (3.5-5.1)
[2017-11-21] MEDS: METHYLPREDNISOLONE 40 MG INJ IV (10:34)
[2017-11-21] MEDS: ASPIRIN (EC) 81 MG TAB PO (10:35)
[2017-11-21] MEDS: LACTOBACILLUS RHAMNOSUS CAP PO ×2 (10:36→21:53)
[2017-11-21] MEDS: LISINOPRIL 5 MG TAB PO (10:36)
[2017-11-21] MEDS: POTASSIUM CHLORIDE (SR) 20 MEQ TAB PO ×3 (10:37→17:16)
[2017-11-21] MEDS: RANITIDINE 150 MG TAB PO (10:37)
[2017-11-21] MEDS: GUAIFENESIN/DM (SR) TAB PO ×2 (10:38→21:53)
[2017-11-21] MEDS: THIAMINE 100 MG TAB PO (10:39)
[2017-11-21] MEDS: MEXILETINE PO ×2 (10:39→21:59)
[2017-11-21] MEDS: DOFETILIDE 250 MCG PO ×2 (10:40→21:54)
[2017-11-21] MEDS ORDERED: VANCOMYCIN 1 GM (PMX) 250 ML IVPB (14:00)
[2017-11-21 18:00] LABS: AADO2 Arterial 153.9 mmHg (7.0-24.0); Allen Test ACCEPTAB; Arterial Base Excess 4.8 mmol/L (-3.0-3); Arterial Blood Gas Oxygen Sat 93.3 mmHG (95.0-100.0); Arterial COHb 0 % (0.0-3.0); Arterial Fraction of Oxyhgb 93.1 % (93.0-99.0); Arterial HCO3 27.1 mmol/L (22.0-26.0); Arterial MetHb 0.2 % (0.0-1.5); Arterial Total Hemglobin 14.9 g/dl (12.0-18.0); Arterial pCO2 33.1 mmhg (35-45); MODE NASAL CANNULA; Site Right Radial
[2017-11-21] MEDS: ATORVASTATIN 20 MG TAB PO (21:53)
[2017-11-22] MEDS: ALBUTEROL/IPRATROPIUM (NEB) 3 ML AMP HHN ×6 (01:07→21:00)
[2017-11-22 04:08] LABS: VANCOMYCIN,TROUGH 13.5 ug/ml (10.0-20.0)
[2017-11-22] MEDS: VANCOMYCIN 750 MG in DEXTROSE 5% 150 ML IVPB ×2 (05:30→16:57)
[2017-11-22] MEDS: FUROSEMIDE 40 MG INJ IV (05:31)
[2017-11-22] MEDS: LEVOFLOXACIN 500 MG TAB PO (05:31)
[2017-11-22] MEDS: MEROPENEM 500MG/50 ML (PMX) 50 ML IVPB ×3 (06:22→21:02)
[2017-11-22] MEDS: LEVOTHYROXINE 50 MCG TAB PO (06:22)
[2017-11-22 06:45] LABS: ADD MAN DIFF? NO
[2017-11-22 06:57] LABS: BASOPHILS % 0.2 % (0.0-2.0); EOSINOPHILS % 0.1 % (0.0-7.0); HEMOGLOBIN 12.3 g/dl (12.0-16.0); LYMPHOCYTES # 1.4 10^3/ul (0.8-2.9); LYMPHOCYTES % 17.5 % (15.0-51.0); MEAN CORPUSCULAR HEMOGLOBIN 33.9 pg (29.0-33.0); MEAN CORPUSCULAR HGB CONC 34.2 g/dl (32.0-37.0); MEAN CORPUSCULAR VOLUME 99.2 fl (82.0-101.0); MEAN PLATELET VOLUME 10.2 fl (7.4-10.4); MONOCYTE # 0.3 10^3/ul (0.3-0.9); MONOCYTES % 4.2 % (0.0-11.0); NEUTROPHIL # 6.1 10^3/ul (1.6-7.5); NEUTROPHILS % 76.1 % (39.0-77.0); PLATELET COUNT 105 10^3/UL (140-415); RED BLOOD COUNT 3.63 10^6/ul (4.20-5.40); RED CELL DISTRIBUTION WIDTH 14.1 % (11.5-14.5)
[2017-11-22 07:24] LABS: ANION GAP 8 (8-16); BLOOD UREA NITROGEN 43 mg/dl (7-20); CALCIUM 7.6 mg/dl (8.4-10.2); CARBON DIOXIDE 28 mmol/L (21-31); CHLORIDE 101 mmol/L (97-110); CREATININE 0.66 mg/dl (0.44-1.00); GLUCOSE 99 mg/dl (70-220); MAGNESIUM 2.2 mg/dl (1.7-2.5); PHOSPHORUS 2.6 mg/dl (2.5-4.9); POTASSIUM 4.1 mmol/L (3.5-5.1); SODIUM 133 mmol/L (135-144)
[2017-11-22] MEDS: METHYLPREDNISOLONE 40 MG INJ IV (08:22)
[2017-11-22] MEDS: POTASSIUM CHLORIDE (SR) 20 MEQ TAB PO (08:25)
[2017-11-22] MEDS: LISINOPRIL 5 MG TAB PO (08:25)
[2017-11-22] MEDS: GUAIFENESIN/DM (SR) TAB PO ×2 (08:25→20:54)
[2017-11-22] MEDS: RANITIDINE 150 MG TAB PO (08:26)
[2017-11-22] MEDS: LACTOBACILLUS RHAMNOSUS CAP PO ×2 (08:26→20:55)
[2017-11-22] MEDS: ASPIRIN (EC) 81 MG TAB PO (08:26)
[2017-11-22] MEDS: THIAMINE 100 MG TAB PO (08:26)
[2017-11-22] MEDS: DOCUSATE SODIUM 100 MG CAP PO ×2 (08:26→20:53)
[2017-11-22] MEDS: POLYETHYLENE GLYCOL 17 GM PACKET PO ×2 (08:27→20:54)
[2017-11-22] MEDS: LIDOCAINE 2% VISC 15 ML CUP PO ×3 (08:27→20:54)
[2017-11-22] MEDS: FISH OIL 1,000 MG CAP PO ×4 (08:27→20:54)
[2017-11-22] MEDS: MEXILETINE PO ×2 (08:29→21:00)
[2017-11-22] MEDS: DOFETILIDE 250 MCG PO ×2 (08:29→20:59)
[2017-11-22] MEDS: ATORVASTATIN 20 MG TAB PO (20:54)
[2017-11-23] MEDS: ALBUTEROL/IPRATROPIUM (NEB) 3 ML AMP HHN ×6 (00:07→21:30)
[2017-11-23] MEDS: VANCOMYCIN 750 MG in DEXTROSE 5% 150 ML IVPB ×2 (03:16→16:40)
[2017-11-23] MEDS: MEROPENEM 500MG/50 ML (PMX) 50 ML IVPB ×3 (05:32→22:53)
[2017-11-23] MEDS: LEVOFLOXACIN 500 MG TAB PO (05:32)
[2017-11-23] MEDS: FUROSEMIDE 40 MG INJ IV (05:32)
[2017-11-23] MEDS: LEVOTHYROXINE 50 MCG TAB PO (06:31)
[2017-11-23 08:11] LABS: ADD MAN DIFF? NO
[2017-11-23 08:19] LABS: BASOPHILS % 0.1 % (0.0-2.0); EOSINOPHILS % 0.1 % (0.0-7.0); HEMOGLOBIN 12.8 g/dl (12.0-16.0); LYMPHOCYTES # 1.4 10^3/ul (0.8-2.9); MEAN CORPUSCULAR HEMOGLOBIN 34.2 pg (29.0-33.0); MEAN CORPUSCULAR HGB CONC 34.6 g/dl (32.0-37.0); MEAN CORPUSCULAR VOLUME 98.9 fl (82.0-101.0); MEAN PLATELET VOLUME 10.5 fl (7.4-10.4); MONOCYTE # 0.4 10^3/ul (0.3-0.9); MONOCYTES % 4.6 % (0.0-11.0); NEUTROPHIL # 7.4 10^3/ul (1.6-7.5); NEUTROPHILS % 78.8 % (39.0-77.0); PLATELET COUNT 123 10^3/UL (140-415); RED BLOOD COUNT 3.74 10^6/ul (4.20-5.40); RED CELL DISTRIBUTION WIDTH 13.9 % (11.5-14.5)
[2017-11-23 08:19] LABS: WHITE BLOOD COUNT 9.3 10^3/ul (4.8-10.8)
[2017-11-23] MEDS: METHYLPREDNISOLONE 40 MG INJ IV (08:31)
[2017-11-23] MEDS: POTASSIUM CHLORIDE (SR) 20 MEQ TAB PO (08:32)
[2017-11-23] MEDS: GUAIFENESIN/DM (SR) TAB PO ×2 (08:32→20:49)
[2017-11-23] MEDS: LACTOBACILLUS RHAMNOSUS CAP PO ×2 (08:32→20:49)
[2017-11-23] MEDS: RANITIDINE 150 MG TAB PO (08:33)
[2017-11-23] MEDS: THIAMINE 100 MG TAB PO (08:33)
[2017-11-23] MEDS: ASPIRIN (EC) 81 MG TAB PO (08:33)
[2017-11-23] MEDS: POLYETHYLENE GLYCOL 17 GM PACKET PO ×2 (08:34→21:00)
[2017-11-23] MEDS: DOCUSATE SODIUM 100 MG CAP PO ×2 (08:34→21:00)
[2017-11-23] MEDS: FISH OIL 1,000 MG CAP PO ×4 (08:34→21:00)
[2017-11-23] MEDS: DOFETILIDE 250 MCG PO ×2 (08:35→20:49)
[2017-11-23] MEDS: LIDOCAINE 2% VISC 15 ML CUP PO ×3 (08:35→21:00)
[2017-11-23] MEDS: LISINOPRIL 5 MG TAB PO (08:35)
[2017-11-23] MEDS: MEXILETINE PO ×2 (08:36→20:49)
[2017-11-23 08:39] LABS: ANION GAP 5 (8-16); BLOOD UREA NITROGEN 41 mg/dl (7-20); CALCIUM 7.8 mg/dl (8.4-10.2); CARBON DIOXIDE 32 mmol/L (21-31); CHLORIDE 99 mmol/L (97-110); CREATININE 0.71 mg/dl (0.44-1.00); GLUCOSE 78 mg/dl (70-220); POTASSIUM 3.2 mmol/L (3.5-5.1); SODIUM 133 mmol/L (135-144)
[2017-11-23] MEDS: POTASSIUM CHLORIDE 20 MEQ POWDER FOR ORAL SOLN PO (13:10)
[2017-11-23] MEDS: ATORVASTATIN 20 MG TAB PO (20:48)
[2017-11-24] MEDS: ALBUTEROL/IPRATROPIUM (NEB) 3 ML AMP HHN ×6 (01:32→20:51)
[2017-11-24] MEDS: VANCOMYCIN 750 MG in DEXTROSE 5% 150 ML IVPB ×3 (04:00→16:10)
[2017-11-24] MEDS: LEVOFLOXACIN 500 MG TAB PO (05:34)
[2017-11-24] MEDS: FUROSEMIDE 40 MG INJ IV (05:34)
[2017-11-24] MEDS: MEROPENEM 500MG/50 ML (PMX) 50 ML IVPB ×2 (05:34→13:32)
[2017-11-24] MEDS: LEVOTHYROXINE 50 MCG TAB PO (06:23)
[2017-11-24] MEDS: LACTOBACILLUS RHAMNOSUS CAP PO ×2 (08:56→20:56)
[2017-11-24] MEDS: RANITIDINE 150 MG TAB PO (08:56)
[2017-11-24] MEDS: GUAIFENESIN/DM (SR) TAB PO ×2 (08:57→20:56)
[2017-11-24] MEDS: POTASSIUM CHLORIDE (SR) 20 MEQ TAB PO (08:57)
[2017-11-24] MEDS: THIAMINE 100 MG TAB PO (08:58)
[2017-11-24] MEDS: METHYLPREDNISOLONE 40 MG INJ IV (08:58)
[2017-11-24] MEDS: DOCUSATE SODIUM 100 MG CAP PO ×2 (08:58→20:56)
[2017-11-24] MEDS: ASPIRIN (EC) 81 MG TAB PO (08:58)
[2017-11-24] MEDS: DOFETILIDE 250 MCG PO ×2 (08:59→20:57)
[2017-11-24] MEDS: FISH OIL 1,000 MG CAP PO ×4 (09:00→20:58)
[2017-11-24] MEDS: LIDOCAINE 2% VISC 15 ML CUP PO ×3 (09:00→20:58)
[2017-11-24] MEDS: LISINOPRIL 5 MG TAB PO (09:00)
[2017-11-24] MEDS: POLYETHYLENE GLYCOL 17 GM PACKET PO ×2 (09:00→20:58)
[2017-11-24] MEDS: MEXILETINE PO ×2 (09:01→20:56)
[2017-11-24] MEDS: ATORVASTATIN 20 MG TAB PO (20:56)
[2017-11-24] MEDS: MEROPENEM 1 GM/50ML(PMX) 50 ML IVPB (23:11)
[2017-11-25] MEDS: ALBUTEROL/IPRATROPIUM (NEB) 3 ML AMP HHN ×6 (01:52→21:30)
[2017-11-25 03:53] LABS: VANCOMYCIN,TROUGH 14.2 ug/ml (10.0-20.0)
[2017-11-25] MEDS: VANCOMYCIN 750 MG in DEXTROSE 5% 150 ML IVPB (04:06)
[2017-11-25] MEDS: LEVOTHYROXINE 50 MCG TAB PO (05:52)
[2017-11-25] MEDS: MEROPENEM 1 GM/50ML(PMX) 50 ML IVPB ×3 (05:52→22:25)
[2017-11-25] MEDS: FUROSEMIDE 40 MG INJ IV (05:53)
[2017-11-25] MEDS: LEVOFLOXACIN 500 MG TAB PO (05:53)
[2017-11-25] MEDS: FISH OIL 1,000 MG CAP PO ×2 (09:00→13:00)
[2017-11-25] MEDS: POLYETHYLENE GLYCOL 17 GM PACKET PO (09:00)
[2017-11-25] MEDS: LIDOCAINE 2% VISC 15 ML CUP PO ×2 (09:00→13:00)
[2017-11-25] MEDS: LISINOPRIL 5 MG TAB PO (09:00)
[2017-11-25] MEDS: GUAIFENESIN/DM (SR) TAB PO (09:23)
[2017-11-25] MEDS: POTASSIUM CHLORIDE (SR) 20 MEQ TAB PO (09:23)
[2017-11-25] MEDS: THIAMINE 100 MG TAB PO (09:23)
[2017-11-25] MEDS: DOCUSATE SODIUM 100 MG CAP PO (09:23)
[2017-11-25] MEDS: DOFETILIDE 250 MCG PO ×2 (09:23→22:22)
[2017-11-25] MEDS: LACTOBACILLUS RHAMNOSUS CAP PO ×2 (09:23→22:22)
[2017-11-25] MEDS: ASPIRIN (EC) 81 MG TAB PO (09:23)
[2017-11-25] MEDS: METHYLPREDNISOLONE 40 MG INJ IV (09:23)
[2017-11-25] MEDS: RANITIDINE 150 MG TAB PO (09:23)
[2017-11-25] MEDS: MEXILETINE PO ×2 (09:39→22:22)
[2017-11-25] MEDS: ATORVASTATIN 20 MG TAB PO (22:22)
[2017-11-26] MEDS: ALBUTEROL/IPRATROPIUM (NEB) 3 ML AMP HHN ×6 (01:48→20:52)
[2017-11-26] MEDS: LEVOTHYROXINE 50 MCG TAB PO (06:05)
[2017-11-26] MEDS: MEROPENEM 1 GM/50ML(PMX) 50 ML IVPB ×3 (06:05→22:20)
[2017-11-26] MEDS: LEVOFLOXACIN 500 MG TAB PO (06:06)
[2017-11-26] MEDS: METHYLPREDNISOLONE 40 MG INJ IV (08:56)
[2017-11-26] MEDS: DOFETILIDE 250 MCG PO ×2 (08:57→22:14)
[2017-11-26] MEDS: MEXILETINE PO ×2 (08:57→22:14)
[2017-11-26] MEDS: FUROSEMIDE 20 MG TAB PO (08:59)
[2017-11-26] MEDS: POTASSIUM CHLORIDE (SR) 20 MEQ TAB PO (08:59)
[2017-11-26] MEDS: ASPIRIN (EC) 81 MG TAB PO (08:59)
[2017-11-26] MEDS: LACTOBACILLUS RHAMNOSUS CAP PO ×2 (08:59→22:15)
[2017-11-26] MEDS: LISINOPRIL 5 MG TAB PO (09:00)
[2017-11-26] MEDS: WARFARIN 5 MG TAB PO (17:33)
[2017-11-26] MEDS: ATORVASTATIN 20 MG TAB PO (22:15)
[2017-11-27] MEDS: ALBUTEROL/IPRATROPIUM (NEB) 3 ML AMP HHN ×6 (01:41→21:03)
[2017-11-27 06:00] LABS: ADD MAN DIFF? NO
[2017-11-27 06:28] LABS: WHITE BLOOD COUNT 8.6 10^3/ul (4.8-10.8)
[2017-11-27 06:28] LABS: ABNORMAL IP MESSAGE 1; BASOPHILS % 0.2 % (0.0-2.0); EOSINOPHILS % 0.2 % (0.0-7.0); HEMATOCRIT 31.5 % (37.0-47.0); HEMOGLOBIN 10.7 g/dl (12.0-16.0); LYMPHOCYTES # 2.2 10^3/ul (0.8-2.9); LYMPHOCYTES % 26.1 % (15.0-51.0); MEAN CORPUSCULAR HEMOGLOBIN 34.6 pg (29.0-33.0); MEAN CORPUSCULAR VOLUME 101.9 fl (82.0-101.0); MEAN PLATELET VOLUME 10.2 fl (7.4-10.4); MONOCYTE # 0.6 10^3/ul (0.3-0.9); MONOCYTES % 6.7 % (0.0-11.0); NEUTROPHIL # 5.5 10^3/ul (1.6-7.5); NEUTROPHILS % 64.2 % (39.0-77.0); PLATELET COUNT 95 10^3/UL (140-415); RED BLOOD COUNT 3.09 10^6/ul (4.20-5.40); RED CELL DISTRIBUTION WIDTH 14.6 % (11.5-14.5)
[2017-11-27] MEDS: MEROPENEM 1 GM/50ML(PMX) 50 ML IVPB ×3 (06:39→20:29)
[2017-11-27] MEDS: LEVOTHYROXINE 50 MCG TAB PO (06:39)
[2017-11-27] MEDS: LEVOFLOXACIN 500 MG TAB PO (06:39)
[2017-11-27 06:43] LABS: INR 0.98; POSITIVE DIFF @See below; PROTIME 13.1 Sec (11.9-14.9)
[2017-11-27 07:03] LABS: ALANINE AMINOTRANSFERASE 41 IU/L (13-69); ALBUMIN 2.1 g/dl (3.3-4.9); ALBUMIN/GLOBULIN RATIO 0.84; ALKALINE PHOSPHATASE 79 IU/L (42-121); ANION GAP 4 (8-16); ASPARTATE AMINO TRANSFERASE 36 IU/L (15-46); BILIRUBIN,INDIRECT 0.2 mg/dl (0-1.1); BILIRUBIN,TOTAL 0.2 mg/dl (0.2-1.3); BLOOD UREA NITROGEN 34 mg/dl (7-20); CALCIUM 7.9 mg/dl (8.4-10.2); CARBON DIOXIDE 31 mmol/L (21-31); CHLORIDE 105 mmol/L (97-110); CREATININE 0.76 mg/dl (0.44-1.00); GLUCOSE 80 mg/dl (70-220); POTASSIUM 4.4 mmol/L (3.5-5.1); SODIUM 136 mmol/L (135-144); TOTAL PROTEIN 4.6 g/dl (6.1-8.1)
[2017-11-27 07:04] LABS: PHOSPHORUS 2.2 mg/dl (2.5-4.9)
[2017-11-27] MEDS: DOFETILIDE 250 MCG PO ×2 (09:31→20:28)
[2017-11-27] MEDS: MEXILETINE PO ×2 (09:31→20:25)
[2017-11-27] MEDS: LACTOBACILLUS RHAMNOSUS CAP PO ×2 (09:32→20:27)
[2017-11-27] MEDS: POTASSIUM CHLORIDE (SR) 20 MEQ TAB PO (09:33)
[2017-11-27] MEDS: ASPIRIN (EC) 81 MG TAB PO (09:33)
[2017-11-27] MEDS: FUROSEMIDE 20 MG TAB PO ×2 (09:33→17:57)
[2017-11-27] MEDS: LISINOPRIL 5 MG TAB PO (09:34)
[2017-11-27] MEDS: WARFARIN 5 MG TAB PO (17:58)
[2017-11-27] MEDS: ATORVASTATIN 20 MG TAB PO (20:26)
[2017-11-28] MEDS: ALBUTEROL/IPRATROPIUM (NEB) 3 ML AMP HHN ×6 (01:24→21:00)
[2017-11-28] MEDS: FUROSEMIDE 20 MG TAB PO ×2 (06:00→18:34)
[2017-11-28] MEDS: MEROPENEM 1 GM/50ML(PMX) 50 ML IVPB ×3 (06:01→21:28)
[2017-11-28] MEDS: LEVOTHYROXINE 50 MCG TAB PO (06:03)
[2017-11-28] MEDS: LEVOFLOXACIN 500 MG TAB PO (06:03)
[2017-11-28 06:48] LABS: INR 1.09; PROTIME 14.3 Sec (11.9-14.9); PT RATIO 1.1
[2017-11-28] MEDS: LACTOBACILLUS RHAMNOSUS CAP PO ×2 (08:42→21:39)
[2017-11-28] MEDS: POTASSIUM CHLORIDE (SR) 20 MEQ TAB PO (08:43)
[2017-11-28] MEDS: ASPIRIN (EC) 81 MG TAB PO (08:43)
[2017-11-28] MEDS: DOFETILIDE 250 MCG PO ×2 (08:44→21:15)
[2017-11-28] MEDS: MEXILETINE PO ×2 (08:47→21:12)
[2017-11-28] MEDS: LISINOPRIL 5 MG TAB PO ×2 (08:57→13:30)
[2017-11-28] MEDS: WARFARIN 5 MG TAB PO (18:34)
[2017-11-28] MEDS: ATORVASTATIN 20 MG TAB PO (21:09)
[2017-11-28] MEDS: LORAZEPAM 0.5 MG TAB PO (22:17)
[2017-11-28 23:22] LABS: TROPONIN-I 0.104 ng/ml (0.00-0.12)
[2017-11-29] MEDS: MIDODRINE 5 MG TAB PO (00:29)
[2017-11-29] MEDS: ALBUTEROL/IPRATROPIUM (NEB) 3 ML AMP HHN ×4 (01:00→13:25)
[2017-11-29] MEDS: FUROSEMIDE 20 MG INJ IV (01:41)
[2017-11-29] MEDS: FUROSEMIDE 20 MG TAB PO ×3 (05:11→17:32)
[2017-11-29] MEDS: MEROPENEM 1 GM/50ML(PMX) 50 ML IVPB (06:05)
[2017-11-29] MEDS: LEVOTHYROXINE 50 MCG TAB PO (06:05)
[2017-11-29] MEDS: LEVOFLOXACIN 500 MG TAB PO (06:06)
[2017-11-29] MEDS: LISINOPRIL 5 MG TAB PO (09:00)
[2017-11-29] MEDS: MEXILETINE PO ×2 (10:05→21:40)
[2017-11-29] MEDS: LACTOBACILLUS RHAMNOSUS CAP PO (10:05)
[2017-11-29] MEDS: DOFETILIDE 250 MCG PO ×2 (10:05→21:38)
[2017-11-29] MEDS: POTASSIUM CHLORIDE (SR) 20 MEQ TAB PO (10:05)
[2017-11-29] MEDS: ASPIRIN (EC) 81 MG TAB PO (10:06)
[2017-11-29 15:30] LABS: ANION GAP 5 (8-16); BLOOD UREA NITROGEN 25 mg/dl (7-20); CALCIUM 7.5 mg/dl (8.4-10.2); CARBON DIOXIDE 32 mmol/L (21-31); CHLORIDE 100 mmol/L (97-110); CREATININE 0.81 mg/dl (0.44-1.00); GLUCOSE 127 mg/dl (70-220); MAGNESIUM 1.8 mg/dl (1.7-2.5); POTASSIUM 3.9 mmol/L (3.5-5.1); SODIUM 133 mmol/L (135-144)
[2017-11-29] MEDS: WARFARIN 5 MG TAB PO (17:31)
[2017-11-29] MEDS: DOCUSATE SODIUM 100 MG CAP PO (21:37)
[2017-11-29] MEDS: ATORVASTATIN 20 MG TAB PO (21:38)
[2017-11-30] MEDS: POLYETHYLENE GLYCOL 17 GM PACKET PO (00:16)
[2017-11-30] MEDS: FUROSEMIDE 20 MG TAB PO ×2 (05:35→17:07)
[2017-11-30] MEDS: LEVOTHYROXINE 50 MCG TAB PO (08:30)
[2017-11-30] MEDS: POTASSIUM CHLORIDE (SR) 20 MEQ TAB PO ×2 (08:33→11:24)
[2017-11-30] MEDS: ASPIRIN (EC) 81 MG TAB PO (08:33)
[2017-11-30] MEDS: LISINOPRIL 5 MG TAB PO ×2 (08:33→09:00)
[2017-11-30 08:42] LABS: INR 1.29; PROTIME 16.3 Sec (11.9-14.9); PT RATIO 1.3
[2017-11-30] MEDS: DOFETILIDE 250 MCG PO ×2 (08:42→21:02)
[2017-11-30] MEDS: MEXILETINE PO ×2 (08:43→21:02)
[2017-11-30 08:55] LABS: ANION GAP 8 (8-16); BLOOD UREA NITROGEN 26 mg/dl (7-20); CALCIUM 7.6 mg/dl (8.4-10.2); CARBON DIOXIDE 30 mmol/L (21-31); CHLORIDE 100 mmol/L (97-110); CREATININE 0.74 mg/dl (0.44-1.00); GLUCOSE 81 mg/dl (70-220); MAGNESIUM 1.9 mg/dl (1.7-2.5); POTASSIUM 3.6 mmol/L (3.5-5.1); SODIUM 134 mmol/L (135-144)
[2017-11-30] MEDS ORDERED: METOPROLOL (XL) 25 MG TAB PO (09:00)
[2017-11-30] MEDS: MAGNESIUM SULFATE 2 GM/50 ML 50 ML IVPB (11:23)
[2017-11-30] MEDS: SENNA TAB PO ×2 (12:09→21:03)
[2017-11-30] MEDS: WARFARIN 5 MG TAB PO (17:07)
[2017-11-30] MEDS: ATORVASTATIN 20 MG TAB PO (21:03)
[2017-11-30] MEDS: NYSTATIN 30 GM POWDER BTL TOP (21:03)
[2017-12-01] MEDS: LEVOTHYROXINE 50 MCG TAB PO (07:02)
[2017-12-01] MEDS: FUROSEMIDE 20 MG TAB PO ×2 (07:02→17:05)
[2017-12-01] MEDS: SENNA TAB PO (08:13)
[2017-12-01] MEDS: MEXILETINE PO (08:13)
[2017-12-01] MEDS: ASPIRIN (EC) 81 MG TAB PO (08:14)
[2017-12-01] MEDS: DOFETILIDE 250 MCG PO (08:14)
[2017-12-01] MEDS: LISINOPRIL 5 MG TAB PO (08:14)
[2017-12-01] MEDS: POTASSIUM CHLORIDE (SR) 20 MEQ TAB PO ×2 (08:14→17:05)
[2017-12-01] MEDS: NYSTATIN 30 GM POWDER BTL TOP (08:16)
[2017-12-01 09:19] LABS: ADD MAN DIFF? NO
[2017-12-01 09:27] LABS: WHITE BLOOD COUNT 6.1 10^3/ul (4.8-10.8)
[2017-12-01 09:27] LABS: ABNORMAL IP MESSAGE 1; BASOPHIL # 0.1 10^3/ul (0.0-0.1); BASOPHILS % 0.8 % (0.0-2.0); EOSINOPHILS % 0.2 % (0.0-7.0); HEMATOCRIT 32.8 % (37.0-47.0); HEMOGLOBIN 11.6 g/dl (12.0-16.0); LYMPHOCYTES # 2.5 10^3/ul (0.8-2.9); LYMPHOCYTES % 40.3 % (15.0-51.0); MEAN CORPUSCULAR HEMOGLOBIN 35.8 pg (29.0-33.0); MEAN CORPUSCULAR HGB CONC 35.4 g/dl (32.0-37.0); MEAN CORPUSCULAR VOLUME 101.2 fl (82.0-101.0); MEAN PLATELET VOLUME 10.4 fl (7.4-10.4); MONOCYTE # 0.5 10^3/ul (0.3-0.9); MONOCYTES % 7.5 % (0.0-11.0); NEUTROPHILS % 49.1 % (39.0-77.0); PLATELET COUNT 97 10^3/UL (140-415); RED BLOOD COUNT 3.24 10^6/ul (4.20-5.40); RED CELL DISTRIBUTION WIDTH 15.1 % (11.5-14.5)
[2017-12-01 09:39] LABS: POSITIVE DIFF @See below
[2017-12-01 09:47] LABS: MAGNESIUM 2.2 mg/dl (1.7-2.5)
[2017-12-01 09:48] LABS: PHOSPHORUS 2.3 mg/dl (2.5-4.9)
[2017-12-01 09:49] LABS: ANION GAP 7 (8-16); BLOOD UREA NITROGEN 26 mg/dl (7-20); CALCIUM 7.5 mg/dl (8.4-10.2); CARBON DIOXIDE 33 mmol/L (21-31); CHLORIDE 100 mmol/L (97-110); GLUCOSE 76 mg/dl (70-220); POTASSIUM 3.5 mmol/L (3.5-5.1); SODIUM 136 mmol/L (135-144)
[2017-12-01] MEDS: BISACODYL (EC) 5 MG TAB PO (10:37)
[2017-12-01] MEDS: DOCUSATE SODIUM 100 MG CAP PO (10:37)
[2017-12-01] MEDS: NA PHOSPHATE/BIPHOS 133 ML ENEMA PR (13:27)
[2017-12-01] MEDS: WARFARIN 5 MG TAB PO (17:05)
== END 2017-12-01 18:55 | DRG 291 ==
LOC: MS4 15:23 → PP2 11-05 00:19 → TEL 11-06 08:30 → MS4 11-29 16:25 → E/R 11:24 → PP2 11-04 18:28 → MS2 11-23 19:37
PROC: 3E0F7GC Introduction of Other Therapeutic Substance into Respiratory Tract, Via Natural or Artificial Opening (ICD-10-PCS; principal; 2017-10-25)
DX: I50.23 Acute on chronic systolic (congestive) heart failure (principal); J96.21 Acute and chronic respiratory failure with hypoxia; J18.9 Pneumonia, unspecified organism; N39.0 Urinary tract infection, site not specified; J44.1 Chronic obstructive pulmonary disease with (acute) exacerbation; T82.198A Other mechanical complication of other cardiac electronic device, initial encounter; I25.5 Ischemic cardiomyopathy; I25.10 Atherosclerotic heart disease of native coronary artery without angina pectoris; R53.81 Other malaise; E03.9 Hypothyroidism, unspecified; E83.39 Other disorders of phosphorus metabolism; I51.7 Cardiomegaly; R10.9 Unspecified abdominal pain; I11.0 Hypertensive heart disease with heart failure; I69.920 Aphasia following unspecified cerebrovascular disease; I69.990 Apraxia following unspecified cerebrovascular disease; J43.9 Emphysema, unspecified; I69.919 Unspecified symptoms and signs involving cognitive functions following unspecified cerebrovascular disease; G58.8 Other specified mononeuropathies; R07.9 Chest pain, unspecified; Z79.82 Long term (current) use of aspirin; Z95.0 Presence of cardiac pacemaker; Z95.810 Presence of automatic (implantable) cardiac defibrillator; Z95.1 Presence of aortocoronary bypass graft; Z79.01 Long term (current) use of anticoagulants; J20.9 Acute bronchitis, unspecified; Y82.8 Other medical devices associated with adverse incidents
CPT/HCPCS: 36415; 36600; 70450; 71045; 71250; 71275; 74018; 74230; 80048; 80053; 80061; 80202; 81001; 82550; 82553; 82607; 82746; 82803; 82962; 83036; 83735; 83880; 84100; 84436; 84439; 84443; 84479; 84484; 85025; 85610; 85730; 87070; 87086; 87400; 92526; 92610; 92611; 93005; 93306; 93308; 93970; 94640; 94664; 94667; 94668; 96374; 96375; 96376; 97110; 97116; 97163; 97164; 97530; 99217; 99285-25; G0378; J1940